=== PATIENT | male | born 1935 | race Caucasian/White ===

== ENCOUNTER 2016-11-03 09:44 | Inpatient (IN) | payer MEDICARE, BC ==
[2016-11-03] VITALS (29 sets, daily range): BP systolic 88–157; BP diastolic 48–98; PULSE 80–120; RESP 14–33; TEMP 97.4; O2SAT 92–99; Ht 177.8 cm; Wt 108.5 kg
[~2016-11-03] VITALS: Ht 177.8 cm; Wt 108.5 kg
[2016-11-03] MEDS: LR 1,000 ML IV SCH ×2 (07:00→14:52)
[~2016-11-03 09:44] MED LIST: CALC1TAB PO; CITA40TA6 PO; HYDR-4246 PO; LATA2.5D7 LEFT EYE; LIDOCAINE 1% (10mg/ml) 2ml SDV INJ ONE; LOSA1TAB96 PO; METF-200 PO; MULT-1074 PO; OXYB5TAB73 PO; SENN-156 PO; [UNRECOGNIZED DRUG - CODE] PO
--- OUTSIDE RECORDS SUMMARY | 2016-11-03 09:49 | XMS REPORT | Continuity of Care Document ---
Author Author [facility] Address [address] [place] [address] Phone Unavailable Care Team Providers Care Appellate Court Judge Name Role Phone Martinez Silverman PP Unavailable Payers Payer name Insurance type Covered libertarian ID Authorization(s) Unknown Problems Condition Effective Dates (start - stop) Clinical Status Parotiditis - *Acute Influenza Vaccine - Diabetes Mellitus Type 2, Uncomplicated - *Chronic Hypertension, Unspecified - *Chronic Hypercholesterolemia - *Chronic Depression - *Chronic ENCEPHALOPATHY, UNSPECIFIED - *Chronic Osteoarthrosis, unspecified whether generalized or localized, involving unspecified site - *Chronic Diabetes Mellitus Type 2, Uncomplicated - Chronic Hypertension, Unspecified - Chronic Hypercholesterolemia - Chronic Depression - Chronic ENCEPHALOPATHY, UNSPECIFIED - Chronic Osteoarthrosis, unspecified whether generalized or localized, involving unspecified site - Chronic Seizure disorder - *Resolved Ataxia - *Symptomatic Restless legs syndrome - *Fair Control Cerebral degeneration, unspecified - *Symptomatic Other speech disturbance - *Symptomatic Hand pain - *Acute Laceration of forehead - *Acute Abrasion, hand - *Acute Sprain of wrist - *Acute Laceration of index finger - *Acute DMII WO CMP NT ST UNCNTR - PURE HYPERCHOLESTEROLEM - 311 - DEPRESSIVE DISORDER NEC - HYPERTENSION NOS - OSTEOARTHROS NOS-UNSPEC - Sialoadenitis - Acute Exacerbation Parotiditis - *Acute Diabetes Mellitus Type 2, Uncomplicated - *Chronic Hypertension, Unspecified - *Chronic Osteoarthrosis, unspecified whether generalized or localized, involving unspecified site - *Chronic Hypercholesterolemia - *Chronic Depression - *Chronic Diabetes Mellitus Type 2, Uncomplicated - *Chronic Hypertension, Unspecified - *Chronic Hypercholesterolemia - *Chronic Osteoarthrosis, unspecified whether generalized or localized, involving unspecified site - *Chronic Diabetes Mellitus Type 2, Uncomplicated - Chronic Hypertension, Unspecified - Chronic Hypercholesterolemia - Chronic Depression - Chronic Osteoarthrosis, unspecified whether generalized or localized, involving unspecified site - Chronic Depression - *Chronic Cerebellar dysfunction - *Chronic Diabetes Mellitus Type 2, Uncomplicated - *Chronic Hypertension, Unspecified - *Chronic Diabetes Mellitus Type 2, Uncomplicated - Chronic Hypertension, Unspecified - Chronic Sialoadenitis - *Acute Sialoadenitis - Persistent Diabetes Mellitus Type 2, Uncomplicated - *Chronic Hypertension, Unspecified - *Chronic ENCEPHALOPATHY, UNSPECIFIED - *Chronic Hypercholesterolemia - *Chronic Osteoarthrosis, unspecified whether generalized or localized, involving unspecified site - *Chronic Depression - *Chronic Diabetes Mellitus Type 2, Uncomplicated - Chronic Hypertension, Unspecified - Chronic ENCEPHALOPATHY, UNSPECIFIED - Chronic Hypercholesterolemia - Chronic Osteoarthrosis, unspecified whether generalized or localized, involving unspecified site - Chronic Depression - Chronic Diabetes Mellitus Type 2, Uncomplicated - *Chronic Hypertension, Unspecified - *Chronic Hypercholesterolemia - *Chronic Depression - *Chronic ENCEPHALOPATHY, UNSPECIFIED - *Chronic Osteoarthrosis, unspecified whether generalized or localized, involving unspecified site - *Chronic Diabetes Mellitus Type 2, Uncomplicated - Chronic Hypertension, Unspecified - Chronic Hypercholesterolemia - Chronic Depression - Chronic ENCEPHALOPATHY, UNSPECIFIED - Chronic Osteoarthrosis, unspecified whether generalized or localized, involving unspecified site - Chronic Sialoadenitis - *Acute Diabetes Mellitus Type 2, Uncomplicated - *Stable Swelling, mass, or lump in head and neck - *Acute Laceration of finger - *Acute Sialoadenitis - *Chronic Muscle strain of right upper back - *Acute Family History Family Member Diagnosis Age At Onset Status Family h/o (Unknown) Cancer - breast Yes Mother (Unknown) Heart disease Yes Family h/o (Unknown) Cancer - prostate Yes Family h/o (Unknown) CVA (Stroke) Yes Father (Unknown) Cancer - lung Yes Mother (Unknown) Cancer Yes Social History Social History Element Description Quantity Unknown Allergies, Adverse Reactions, Alerts Substance Reaction Severity Status MORPHINE Hallucinations moderate Medications Medication Instructions Dosage Effective Dates (start - stop) Status Augmentin 875 mg-125 mg tablet take 1 tablet by oral route every 12 hours 0 - No Longer Active Multiple Vitamins Daily tablet take 1 Tablet by Oral route every day 0 - Active citalopram 20 mg tablet Take 1 by mouth every day. - Active metformin 500 mg tablet Take 2 tablets by mouth twice a day. - Active simvastatin 20 mg tablet Take 1 tablet by mouth every day. - Active oxybutynin chloride 5 mg tablet Take 1 tablet by mouth twice a day. - Active metoprolol tartrate 50 mg tablet Take 1 tablet by mouth every day. 2012 - Active One Touch Ultra Test strips TEST DAILY FASTING OR 2 HOURS AFTER MEALS - Active Hyzaar 100 mg-25 mg tablet take 0.5 Tablet by oral route every day 0 - Active latanoprost 0.005 % eye drops instill 1 drop by ophthalmic route every day into affected eye(s) in the evening 0 - Active CALCIUM PLUS (unknown strength) - Active pramipexole 0.25 mg tablet take 1.5 Tablet (0.375MG) by oral route 2-3 hours before bedtime 0.375 MG - Active [place] 5 mg-325 mg tablet take 1 - 2 Tablet by oral route every 6 hours as needed for pain 0 - Active clindamycin 300 mg capsule take 1 capsule (300MG) by oral route every 8 hours 300 MG - Active Bactrim DS 800 mg-160 mg tablet take 1 tablet by oral route every 12 hours 0 - Active glipizide ER 10 mg tablet, extended release 24 hr Take 1 tablet by mouth every day. - Active Immunizations Vaccine Date Status Comments pneumo (2 yrs or older) (PPV23) completed - Completed reason: other registry Flu (split) (3 yrs or older) completed Flu (split) (3 yrs or older) completed Tdap (Adacel ) completed - Completed reason: other provider Td (adult) completed - Completed reason: previously given Results Test Name Date and Time Measure Units Reference Range Abnormal Flag Comments Unknown Vital Signs Date / Time: Height Weight Pulse Rate Blood Pressure Temperature /11:33:00 70.00 in 84 /min 138/98 mm[Hg] 97.8 F Procedures Procedure Date Unknown Encounters Encounter Location Date Patient Visit [facility] Patient Visit Patient Visit [facility] Patient Visit [facility] Patient Visit [facility] Patient Visit [facility] Patient Visit [facility] Patient Visit [facility] Patient Visit [facility] Patient Visit [facility] Patient Visit [facility] Patient [facility] Patient Visit [facility] Patient Visit [facility] Patient Visit [facility] Advance Directives Directive Effective Date Unknown
--- OUTSIDE RECORDS SUMMARY | 2016-11-03 09:50 | XMS REPORT | Continuity of Care Document ---
Author Author [facility] Organization [facility] Address Unknown Phone Unavailable Allergies Active Description Code Type Severity Reaction Onset Reported/Identified Relationship to Patient Clinical Status Yes morphine NKMA Moderate Hallucinations 10/09/2013 Medications Problems Procedures Results Encounters ACCT No. Visit Date/Time Discharge Status Pt. Type Provider Facility Loc./Unit Complaint [id number] 08/26/2013 12:39:00 08/26/2013 23 :59:59 CLS Outpatient [id number] 08/20/2013 14:50:00 08/20/2013 23 :59:59 CLS Outpatient [id number] 08/20/2013 10:07:00 08/20/2013 23 :59:59 CLS Outpatient [id number] 08/12/2013 11:32:00 08/12/2013 23 :59:59 CLS Outpatient [id number] 08/01/2013 13:53:00 08/01/2013 23 :59:59 CLS Outpatient [id number] 06/18/2013 12:56:00 06/18/2013 23 :59:59 CLS Outpatient
--- OUTSIDE RECORDS SUMMARY | 2016-11-03 09:50 | XMS REPORT | Referral Summary ---
Author Author [facility] Organization 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 Name Role Phone Vanessa Silverman Primary Care Physician [phone] Encounter VC Date(s): 04/09/15 - 04/09/15 [facility] [address] [place] [address]- Discharge Disposition: 01-Home or Self Care Attending Physician: Martinez Silverman MD Admitting Physician: Martinez Silverman MD Vital Signs No data available for this section Problem List Condition Effective Dates Status Health Status Informant Ataxia(Confirmed) Active Cerebellar Resolved dysfunction(Confirme d) Depressive Resolved disorder(Confirmed) Disorder of brain Active (disorder)(Confirmed ) DM II (diabetes Resolved mellitus, type II), controlled(Confirmed ) Essential Active hypertension (disorder)(Confirmed ) Hypercholesterolemia Resolved (Confirmed) Hypertension(Confirm Resolved ed) Osteoarthritis(Confi Resolved rmed) Pure Active hypercholesterolemia (disorder)(Confirmed ) Restless legs Active syndrome (RLS)(Confirmed) Seizure Resolved disorder(Confirmed) Diabetes mellitus, Active type 2(Confirmed) Allergies, Adverse Reactions, Alerts Substance Reaction Severity Status morphine Hallucinations Moderate Active Medications Calcium 600+D tabs, Oral, TID, 0 Refill(s) Start Date: 11/22/13 Status: Ordered citalopram 20 mg oral tablet See Instructions, TAKE TWO TABLET BY MOUTH EVERY DAY, # 90 tabs, 1 Refill(s), eRx: [facility], TAKE ONE TABLET BY MOUTH EVERY DAY Start Date: 10/22/14 Status: Ordered cyclobenzaprine 10 mg oral tablet 10 mg 1 tabs, Oral, TID, as needed for spasm, # 90 tabs, 0 Refill(s), Pharmacy: [facility], 1 tabs Oral TID,PRN:as needed for spasm Start Date: 01/26/15 Status: Ordered Eye Health Formula oral capsule 1 caps, Oral, Daily, # 90 caps, 0 Refill(s) Start Date: 08/18/14 Status: Ordered glipiZIDE 10 mg oral tablet, extended release See Instructions, TAKE ONE TABLET BY MOUTH ONCE DAILY, # 90 tabs, 1 Refill(s), eRx: [facility], TAKE ONE TABLET BY MOUTH ONCE DAILY Start Date: 01/05/15 Status: Ordered Glucometer strips (DME) DME Item One Touch Ultra Test Strips, Test daily DX 250.00, See Instructions, # 100 Each, 5 Refill(s), Pharmacy: [facility] #[id number], One Touch Ultra Test Strips, Test daily DX 250.00, Supply Start Date: 03/09/15 Status: Ordered HYDROcodone-acetaminophen 5 mg-325 mg oral tablet 1-2 tablets, Oral, q4hr, as needed for pain, # 24 tabs, 0 Refill(s) Start Date: 04/16/14 Status: Ordered latanoprost 0.005% ophthalmic solution 1 drops, Eye-Left, Bedtime (once a day), # 2.5 mL, 0 Refill(s) Start Date: 11/22/13 Status: Ordered losartan-hydrochlorothiazide 100 mg-25 mg oral tablet See Instructions, TAKE ONE TABLET BY MOUTH EVERY DAY, # 90 tabs, 1 Refill(s), eRx: [facility], TAKE ONE TABLET BY MOUTH EVERY DAY Start Date: 02/09/15 Status: Ordered metFORMIN 500 mg oral tablet See Instructions, TAKE TWO TABLETS BY MOUTH TWICE DAILY, # 270 tabs, eRx: [facility], TAKE TWO TABLETS BY MOUTH TWICE DAILY Start Date: 03/17/15 Status: Ordered Metoprolol Tartrate 50 mg oral tablet See Instructions, TAKE ONE TABLET BY MOUTH ONCE DAILY, # 90 tabs, 1 Refill(s), eRx: [facility], TAKE ONE TABLET BY MOUTH ONCE DAILY Start Date: 02/18/15 Status: Ordered Mobic 7.5 mg oral tablet 7.5 mg 1 tabs, Oral, Daily, # 14 Each, 0 Refill(s), Pharmacy: [place] [id number], 1 tabs Oral Daily Start Date: 01/26/15 Status: Ordered multivitamin Daily, 0 Refill(s) Start Date: 11/22/13 Status: Ordered [place] 5 mg-325 mg oral tablet 1 tabs, Oral, q4hr, as needed for pain, max tylenol in 24 hrs is 3000mg, # 50 tabs, 0 Refill(s) Start Date: 01/26/15 Status: Ordered ONETOUCH ULTRA TEST STRIPS See Instructions, TEST ONE TO TWO TIMES A DAY, # 50 strip, 2 Refill(s), eRx: [facility] #[id number], TEST ONE TO TWO TIMES A DAY Start Date: 03/09/15 Status: Ordered oxybutynin 5 mg oral tablet See Instructions, TAKE ONE TABLET BY MOUTH TWICE DAILY, # 180 tabs, 1 Refill(s) , eRx: [facility], TAKE ONE TABLET BY MOUTH TWICE DAILY Start Date: 02/09/15 Status: Ordered senna Oral, Daily, as needed for constipation, 0 Refill(s) Start Date: 08/18/14 Status: Ordered simvastatin 20 mg oral tablet See Instructions, TAKE ONE TABLET BY MOUTH EVERY DAY, # 90 tabs, 1 Refill(s), eRx: [facility], TAKE ONE TABLET BY MOUTH EVERY DAY Start Date: 09/17/14 Status: Ordered Results No data available for this section Immunizations Vaccine Date Refusal Reason influenza virus vaccine, inactivated 04/09/15 influenza virus vaccine, inactivated 04/08/14 influenza virus vaccine, live 04/17/13 influenza virus vaccine, live 04/12/12 pneumococcal 13-valent conjugate vaccine1 11/19/14 pneumococcal 23-polyvalent vaccine 04/25/02 tetanus-diphth toxoids (Td) adult/adol 07/21/12 1Early/Late Reason: Nursing Judgment Procedures Procedure Date Related Diagnosis Body Site Parotidectomy1 04/16/14 None Shoulder2 1left side 2Left shoulder replacement Social History Social History Type Response Smoking Status Former smoker Assessment and Plan No data available for this section
--- OUTSIDE RECORDS SUMMARY | 2016-11-03 09:50 | XMS REPORT | Continuity of Care Document ---
Author Author Martinez Silverman MD [facility] Amb[facility] Address [address] [place] [address] Phone Care Team Providers Care Oyster Fisherman Name Role Phone Martinez Silverman PP Unavailable Payers Payer name Insurance type Covered libertarian ID Authorization(s) Unknown Problems Condition Effective Dates (start - stop) Clinical Status Diabetes Mellitus Type 2, Uncomplicated - *Chronic [...] or localized, involving unspecified site - Chronic Influenza Vaccine - Diabetes Mellitus Type 2, [...] *Acute Laceration of index finger - *Acute Parotiditis - *Acute DMII WO CMP NT ST [...] unspecified site - Chronic Depression - Chronic Sialoadenitis - *Acute Diabetes Mellitus [...] Dosage Effective Dates (start - stop) Status Multiple Vitamins Daily tablet take 1 Tablet by Oral route every day 0 - Active glipizide ER 10 mg tablet, extended release 24 hr Take 1 tablet by mouth every day. - Active citalopram 20 mg tablet Take [...] hours before bedtime 0.375 MG - Active [place] 5 mg-325 mg tablet take 1 - 2 Tablet by oral route every 6 hours as needed for pain 0 - Active clindamycin 300 mg capsule take 1 capsule (300MG) by oral route every 8 hours 300 MG - Active Bactrim DS 800 mg-160 mg tablet take 1 tablet by oral route every 12 hours 0 - Active Immunizations Vaccine Date Status Comments [...] Height Weight Pulse Rate Blood Pressure Temperature /14:02:00 70.00 in 257.00 lbs 68 /min 130/74 mm[Hg] 98.3 F Procedures Procedure Date Unknown Encounters Encounter Location Date Patient Visit [facility] Patient Visit Patient Visit [facility] Patient Visit [facility] Patient Visit [facility] Patient Visit [facility] Patient [facility] Patient [facility] Patient [facility] Patient Visit [facility] Patient Visit [facility] Patient Visit [facility] Patient [facility] Patient [facility] Patient [facility] Patient [facility] Advance Directives Directive Effective Date Unknown
--- OUTSIDE RECORDS SUMMARY | 2016-11-03 09:50 | XMS REPORT | Referral Summary ---
Author Author [facility] Organization [facility] Address Unknown Phone Unavailable Care Team Providers Care Full Stack Php Developer Name Role Phone Vanessa Silverman Primary Care Physician [phone] Encounter VC Date(s): 07/28/16 - 07/28/16 [facility] [address] [place] [address]- Discharge Diagnosis: Atypical mole Discharge Disposition: 01-Home or Self Care Attending Physician: Martinez Silverman MD Admitting Physician: Martinez Silverman MD Vital Signs Most recent to 1 oldest [Reference Range]: Peripheral Pulse 68 bpm Rate [60-100 bpm] (07/28/16 10:47 AM) Respiratory Rate 16 br/min [14-20 br/min] (07/28/16 10:47 AM) Blood Pressure 134/70 mmHg [90-140/60-90 mmHg] (07/28/16 10:47 AM) Problem List Condition Effective Dates Status Health Status Informant Ataxia(Confirmed) Active Cerebellar Active dysfunction(Confirme d) Depressive Resolved disorder(Confirmed) DM II (diabetes Resolved mellitus, type II), controlled(Confirmed ) Essential Active hypertension (disorder)(Confirmed ) Hypercholesterolemia Resolved (Confirmed) Hypertension(Confirm Resolved ed) Disorder of brain Active (disorder)(Confirmed ) Osteoarthritis(Confi Active rmed) Pure Active hypercholesterolemia (disorder)(Confirmed ) Restless legs Active syndrome (RLS)(Confirmed) Seizure Resolved disorder(Confirmed) Diabetes mellitus, Active type 2(Confirmed) Allergies, Adverse Reactions, Alerts Substance Reaction Severity Status morphine Hallucinations Moderate Active Medications citalopram 40 mg oral tablet 40 mg 1 tabs, Oral, Daily, # 90 tabs, 4 Refill(s), Pharmacy: [facility], 1 tabs Oral Daily Start Date: 09/01/15 Status: Ordered cyclobenzaprine 10 mg oral tablet 10 mg 1 tabs, Oral, TID, as needed for spasm, # 90 tabs, 0 Refill(s), Pharmacy: [facility], 1 tabs Oral TID,PRN:as needed for spasm Start Date: 01/26/15 Status: Ordered glipiZIDE 10 mg oral tablet, extended release 10 mg 1 tabs, Oral, Daily, [id number], # 90 tabs, 4 Refill(s), Pharmacy: [facility], 1 tabs Oral Daily,Instr:[id number] Start Date: 09/01/15 Status: Ordered Glucometer Lancets (DME) DME Item LANCETS. PT. USES ONE TOUCH ULTRA MACHINE DX. E11.9 CHECK B/S BID , See Instructions, # 1 boxes, 3 Refill(s), Pharmacy: [facility] #[id number], LANCETS. PT. USES ONE TOUCH ULTRA MACHINE DX. E11.9 CHECK B/S BID, Supply Start Date: 02/24/16 Status: Ordered Glucometer strips (DME) DME Item One Touch Ultra Test Strips, Test 2 times daily DX E11.9, See Instructions, # 100 Each, 5 Refill(s), Pharmacy: [facility] #[id number], One Touch Ultra Test Strips, Test 2 times daily DX E11.9, Supply Start Date: 04/07/16 Status: Ordered HYDROcodone-acetaminophen 5 mg-325 mg oral tablet 1-2 tablets, Oral, q4hr, as needed for pain, # 24 tabs, 0 Refill(s) Start Date: 04/16/14 Status: Ordered latanoprost 0.005% ophthalmic solution 1 drops, Eye-Left, Bedtime (once a day), # 2.5 mL, 0 Refill(s) Start Date: 11/22/13 Status: Ordered losartan-hydrochlorothiazide 100 mg-25 mg oral tablet 1 tabs, Oral, Daily, [id number], # 90 tabs, 4 Refill(s), Pharmacy: [facility] Start Date: 09/01/15 Status: Ordered metFORMIN 500 mg oral tablet 1,000 mg 2 tabs, Oral, BID, [id number], # 360 tabs, 4 Refill(s), Pharmacy: [facility], 2 tabs Oral BID,Instr:[id number] Start Date: 09/01/15 Status: Ordered Metoprolol Tartrate 50 mg oral tablet 50 mg 1 tabs, Oral, Daily, [id number], # 90 tabs, 4 Refill(s), Pharmacy: [facility], 1 tabs Oral Daily,Instr:[id number] Start Date: 09/01/15 Status: Ordered Mobic 7.5 mg oral tablet 7.5 mg 1 tabs, Oral, Daily, # 14 Each, 0 Refill(s), Pharmacy: [facility], 1 tabs Oral Daily Start Date: 01/26/15 Status: Ordered [place] 5 mg-325 mg oral tablet 1 tabs, Oral, q4hr, as needed for pain, max tylenol in 24 hrs is 3000mg, # 50 tabs, 0 Refill(s) Start Date: 01/26/15 Status: Ordered ONETOUCH ULTRA TEST STRIPS See Instructions, TEST ONE TO TWO TIMES A DAY, # 50 strip, 2 Refill(s), eRx: [facility] #[id number], TEST ONE TO TWO TIMES A DAY Start Date: 03/09/15 Status: Ordered oxybutynin 5 mg oral tablet 5 mg 1 tabs, Oral, BID, [id number], # 180 tabs, 4 Refill(s), Pharmacy: [facility], 1 tabs Oral BID,Instr:[id number] Start Date: 09/01/15 Status: Ordered senna Oral, Daily, as needed for constipation, 0 Refill(s) Start Date: 08/18/14 Status: Ordered [place] 5 mg oral tablet 5 mg 1 tabs, Oral, Daily, samples x 5 weeks given, # 30 tabs, 0 Refill(s), samples given to patient (Rx) Start Date: 08/20/15 Status: Ordered Results No data available for this section Immunizations Given and Recorded Vaccine Date Status Refusal Reason influenza virus vaccine, inactivated 02/24/16 Given influenza virus vaccine, inactivated 04/09/15 Given influenza virus vaccine, inactivated 04/08/14 Recorded influenza virus vaccine, live 04/17/13 Given influenza virus vaccine, live 04/12/12 Given pneumococcal 13-valent conjugate vaccine1 11/19/14 Given pneumococcal 23-polyvalent vaccine 04/25/02 Recorded tetanus-diphth toxoids (Td) adult/adol 07/21/12 Given 1Early/Late Reason: Nursing Judgment Procedures Procedure Date Related Diagnosis Body Site Parotidectomy1 04/16/14 None Shoulder2 1left side 2Left shoulder replacement Social History Social History Type Response Smoking Status Former smoker Assessment and Plan No data available for this section
--- OUTSIDE RECORDS SUMMARY | 2016-11-03 09:50 | XMS REPORT | Continuity of Care Document ---
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 Name Role Phone Martinez Silverman PP Unavailable Payers Payer name Insurance type Covered alliance party ID Authorization(s) Unknown Problems Condition Effective Dates (start - stop) Clinical Status Seizure disorder - *Resolved Ataxia - *Symptomatic Restless legs syndrome - *Fair Control Influenza Vaccine - Diabetes Mellitus Type 2, [...] or localized, involving unspecified site - Chronic Cerebral degeneration, unspecified - *Symptomatic Other speech disturbance - *Symptomatic Hand pain - *Acute Laceration of forehead - *Acute Abrasion, hand - *Acute Sprain of wrist - *Acute Laceration of index finger - *Acute DMII WO CMP NT ST UNCNTR - PURE HYPERCHOLESTEROLEM - 311 - DEPRESSIVE DISORDER NEC - HYPERTENSION NOS - OSTEOARTHROS NOS-UNSPEC - Parotiditis - *Acute Diabetes Mellitus Type 2, [...] Depression - *Chronic Cerebellar dysfunction - *Chronic Sialoadenitis - Persistent Diabetes Mellitus Type 2, [...] - *Acute Laceration of finger - *Acute Muscle strain of right upper back - [...] Adverse Reactions, Alerts Substance Reaction Severity Status Unknown Medications Medication Instructions Dosage Effective Dates (start - stop) Status latanoprost 0.005 % eye drops instill 1 drop by ophthalmic route every day into affected eye(s) in the evening 0 - Active CALCIUM PLUS (unknown strength) - Active Mirapex 0.25 mg tablet take 1.5 Tablet (0.375MG) by oral route 2-3 hours before bedtime 0.375 MG - No Longer Active Multiple Vitamins Daily [...] oral route every day 0 - Active pramipexole 0.25 mg tablet take 1.5 Tablet (0.375MG) by oral route 2-3 hours before bedtime 0.375 MG - Active Immunizations Vaccine Date Status Comments [...] Height Weight Pulse Rate Blood Pressure Temperature /12:58:00 260.60 lbs 66 /min 110/70 mm[Hg] Procedures Procedure Date Unknown Encounters Encounter Location Date Patient Visit [facility] Neuro Patient Visit Patient Visit [facility] Patient Visit [facility] Patient Visit [facility] Patient Visit [facility] Patient Visit [facility] Patient Visit [facility] Patient Visit [facility] Patient Visit [facility] Patient Visit [facility] Patient Visit [facility] Patient Visit [facility] Patient Visit [facility] Patient Visit [facility] Patient Visit [facility] Patient Visit [facility] Patient Visit [facility] Patient Visit [facility] ENT Patient Visit [facility] Patient Visit [facility] Patient Visit [facility] Patient Visit [facility] Advance Directives Directive Effective Date Unknown
--- OUTSIDE RECORDS SUMMARY | 2016-11-03 09:50 | XMS REPORT | Referral Summary ---
Author Author [facility] Organization [facility] Address Unknown Phone Unavailable Care Team Providers Care Side Boss Name Role Phone Vanessa Silverman Primary Care Physician [phone] Encounter Date(s): 01/26/15 - 01/26/15 [facility] [address] [place] [address]- Discharge Diagnosis: General weakness Discharge Diagnosis: Cerebellar dysfunction Discharge Diagnosis: Back spasm Discharge Diagnosis: Rash Discharge Disposition: 01-Home or Self Care Attending Physician: Leatha Casarez APRN Admitting Physician: Leatha Casarez APRN Vital Signs Most recent to 1 oldest [Reference Range]: Temperature Tympanic 36.1 degC [36.6-38.1 degC] *LOW* (01/26/15 10:01 AM) Peripheral Pulse 88 bpm Rate [60-100 bpm] (01/26/15 10:01 AM) Blood Pressure 120/86 mmHg [90-140/60-90 mmHg] (01/26/15 10:01 AM) Problem List Condition Effective Dates Status [...] Status morphine Hallucinations Moderate Active Medications citalopram 20 mg oral tablet See Instructions, TAKE two TABLET BY MOUTH ONCE DAILY, # 90 tabs, 1 Refill(s), eRx: [id number], TAKE ONE TABLET BY MOUTH ONCE DAILY Start Date: 04/20/15 Status: Ordered cyclobenzaprine 10 mg oral tablet 10 mg 1 tabs, Oral, TID, as needed for spasm, # 90 tabs, 0 Refill(s), Pharmacy: [place] [id number], 1 tabs Oral TID,PRN:as needed for spasm Start Date: 01/26/15 Status: Ordered glipiZIDE 10 mg oral tablet, extended release See Instructions, TAKE ONE TABLET BY MOUTH ONCE DAILY, # 90 tabs, 1 Refill(s), eRx: [facility] 242, TAKE ONE TABLET BY MOUTH ONCE DAILY Start Date: 07/20/15 Status: Ordered Glucometer strips (DME) DME Item One Touch Ultra Test Strips, Test daily DX 250.00, See Instructions, # 100 Each, 5 Refill(s), Pharmacy: [facility] #[id number], One Touch Ultra Test Strips, Test daily [...] DAY, # 90 tabs, 1 Refill(s), eRx: [place] [id number], TAKE ONE TABLET BY MOUTH EVERY DAY Start Date: 02/09/15 Status: Ordered metFORMIN 500 mg oral tablet See Instructions, TAKE TWO TABLETS BY MOUTH TWICE DAILY, # 270 tabs, 1 Refill(s) , eRx: [facility] 2428, TAKE TWO TABLETS BY MOUTH TWICE DAILY Start Date: 05/18/15 Status: Ordered Metoprolol Tartrate 50 mg oral tablet See Instructions, TAKE ONE TABLET BY MOUTH ONCE DAILY, # 90 tabs, 1 Refill(s), eRx: [facility] 2428, TAKE ONE TABLET BY MOUTH ONCE DAILY Start Date: 02/18/15 Status: Ordered Mobic 7.5 mg oral tablet 7.5 mg 1 tabs, Oral, Daily, # 14 Each, 0 Refill(s), Pharmacy: [facility], 1 tabs Oral Daily Start Date: 01/26/15 Status: Ordered [place] 5 mg-325 mg oral tablet 1 tabs, Oral, q4hr, as needed for pain, max tylenol in 24 hrs is 3000mg, # 50 tabs, 0 Refill(s) Start Date: 01/26/15 Status: Ordered ONETOUCH ULTRA TEST STRIPS See Instructions, TEST ONE TO TWO TIMES A DAY, # 50 strip, 2 Refill(s), eRx: [facility] #[id number], TEST ONE TO TWO TIMES A DAY Start Date: 03/09/15 Status: Ordered oxybutynin 5 mg oral tablet See Instructions, TAKE ONE TABLET BY MOUTH TWICE DAILY, # 180 tabs, 1 Refill(s) , eRx: [id number], TAKE ONE TABLET BY MOUTH TWICE DAILY Start Date: 02/09/15 Status: Ordered senna Oral, Daily, as needed for constipation, 0 Refill(s) Start Date: 08/18/14 Status: Ordered Results No data available for [...] Smoking Status Former smoker Assessment and Plan Extracted from: Title: Office Visit Note-back Author: Leatha Casarez APRN Date: Assessment/Plan 1.Back spasm Cyclobenzapine 3 x a day as needed. Counseled regarding usual conservative care for musculoskeletal back pain. The history suggests a mechanical etiology. The examination and history do not suggest acute cauda equina syndrome. RecommendMobic 7.5 mg dly x 2 weeks. Avoid other NSAIDS. Take with food. May cause stomach irritation. Tylenol per box instructions as needed. Max in 3000mg/24 hrs. Each norco has 325 mg in it. Try heating pad, ice massage, hot soak in tub/shower, and/or topical preparations like Icy Hot/Lj Schafer as desired. Muscle relaxant as prescribed. Cautioned against drowsiness. Follow-up in the office if symptoms fail to improve. Consider PT if not improving over time. If not improved in 4-6 weeks will consider imaging. Avoid offending activities.There is no history of any significant trauma and no midline tenderness to indicate any need for any imaging studies on this occasion. [place] for severe pain. Ordered: Office Visit Level 4 Est 93818 2.Rash cont benadryl. Ordered: Office Visit Level 4 Est 11692 Cerebellar dysfunction at baseline. Enc pt to avoid sitting on ground. Ordered: Office Visit Level 4 Est 04509 General weakness Ordered: Office Visit Level 4 Est 48029 Orders: cyclobenzaprine, 10 mg 1 tabs, Oral, TID, as needed for spasm, # 90 tabs, 0 Refill(s), Pharmacy: [facility], 1 tabs Oral TID,PRN:as needed for spasm HYDROcodone-acetaminophen, 1 tabs, Oral, q4hr, as needed for pain, max tylenol in 24 hrs is 3000mg, # 50 tabs, 0 Refill(s) meloxicam, 7.5 mg 1 tabs, Oral, Daily, # 14 Each, 0 Refill(s), Pharmacy: [facility], 1 tabs Oral Daily
--- OUTSIDE RECORDS SUMMARY | 2016-11-03 09:50 | XMS REPORT | Referral Summary ---
Author Author [facility] Organization [facility] Address Unknown Phone Unavailable Care Team Providers Care Roastmaster Name Role Phone Vanessa Silverman Primary Care Physician [phone] Encounter VC Date(s): 02/19/15 - 02/19/15 [facility] [address] [place] [address] Discharge Diagnosis: Diabetes mellitus, type 2 Discharge Diagnosis: Disorder of brain Discharge Diagnosis: Essential hypertension Discharge Diagnosis: Pure hypercholesterolemia Discharge Diagnosis: Cerebellar dysfunction Discharge Disposition: 01-Home or Self Care Attending Physician: Martinez Silverman MD Admitting Physician: Martinez Silverman MD Vital Signs Most recent to 1 oldest [Reference Range]: Temperature Tympanic 36.5 degC [36.6-38.1 degC] *LOW* (02/19/15 11:04 AM) Peripheral Pulse 86 bpm Rate [60-100 bpm] (02/19/15 11:04 AM) Blood Pressure 126/84 mmHg [90-140/60-90 mmHg] (02/19/15 11:04 AM) Problem List Condition Effective Dates Status Health Status Informant Ataxia(Confirmed) Active Cerebellar Resolved dysfunction(Confirme d) Depressive Resolved disorder(Confirmed) DM II (diabetes Resolved mellitus, type II), controlled(Confirmed ) Essential Active hypertension (disorder)(Confirmed ) Hypercholesterolemia Resolved (Confirmed) Hypertension(Confirm Resolved ed) Disorder of brain Active (disorder)(Confirmed ) Osteoarthritis(Confi Resolved rmed) Pure Active hypercholesterolemia (disorder)(Confirmed ) Restless legs Active syndrome (RLS)(Confirmed) Seizure Resolved disorder(Confirmed) Diabetes mellitus, Active type 2(Confirmed) Allergies, Adverse Reactions, Alerts Substance Reaction Severity Status morphine Hallucinations Moderate Active Medications citalopram 40 mg oral tablet 40 mg 1 tabs, Oral, Daily, # 90 tabs, 4 Refill(s), Pharmacy: [facility], 1 tabs Oral Daily Start Date: 08/21/15 Status: Ordered cyclobenzaprine 10 mg oral tablet 10 mg 1 tabs, Oral, TID, as needed for spasm, # 90 tabs, 0 Refill(s), Pharmacy: [facility], 1 tabs Oral TID,PRN:as needed for spasm Start Date: 01/26/15 Status: Ordered glipiZIDE 10 mg oral tablet, extended release 10 mg 1 tabs, Oral, Daily, [id number], # 90 tabs, 4 Refill(s), Pharmacy: [facility], 1 tabs Oral Daily,Instr:[id number] Start Date: 08/21/15 Status: Ordered Glucometer strips (DME) DME Item One Touch Ultra Test Strips, Test daily DX 250.00, See Instructions, # 100 Each, 5 Refill(s), Pharmacy: [facility] #[id number], One Touch Ultra Test Strips, Test daily [...] mg oral tablet 1 tabs, Oral, Daily, [id number], # 90 tabs, 4 Refill(s), Pharmacy: [facility] Start Date: 08/21/15 Status: Ordered metFORMIN 500 mg oral tablet 1,000 mg 2 tabs, Oral, BID, [id number], # 360 tabs, 4 Refill(s), Pharmacy: [facility], 2 tabs Oral BID,Instr:[id number] Start Date: 08/21/15 Status: Ordered Metoprolol Tartrate 50 mg oral tablet 50 mg 1 tabs, Oral, Daily, [id number], # 90 tabs, 4 Refill(s), Pharmacy: [facility], 1 tabs Oral Daily,Instr:[id number] Start Date: 08/21/15 Status: Ordered Mobic 7.5 mg oral tablet 7.5 mg 1 tabs, Oral, Daily, # 14 Each, 0 Refill(s), Pharmacy: [facility], 1 tabs Oral Daily Start Date: 01/26/15 Status: Ordered [place] 5 mg-325 mg oral tablet 1 tabs, Oral, q4hr, as needed for pain, max tylenol in 24 hrs is 3000mg, # 50 tabs, 0 Refill(s) Start Date: 01/26/15 Status: Ordered ONETOUCH ULTRA TEST STRIPS See Instructions, TEST ONE TO TWO TIMES A DAY, # 50 strip, 2 Refill(s), eRx: [facility] #[id number], TEST ONE TO TWO TIMES A DAY Start Date: 03/09/15 Status: Ordered oxybutynin 5 mg oral tablet 5 mg 1 tabs, Oral, BID, [id number], # 180 tabs, 4 Refill(s), Pharmacy: [facility], 1 tabs Oral BID,Instr:[id number] Start Date: 08/21/15 Status: Ordered senna Oral, Daily, as needed for constipation, 0 Refill(s) Start Date: 08/18/14 Status: Ordered Tradjenta 5 mg oral tablet 5 mg 1 tabs, Oral, Daily, # 30 tabs, 0 Refill(s), samples given [...] smoker Assessment and Plan Extracted from: Title: Ambulatory Patient Education Author: Martinez Silverman MD Date: Ophthalmology Diabetes and Small Vessel Disease Small vessel disease (microvascular disease) includes nephropathy, retinopathy, and neuropathy. People with diabetes are at risk for these problems, but keeping blood glucose (sugar) controlled is helpful in preventing problems. DIABETIC KIDNEY PROBLEMS (DIABETIC NEPHROPATHY) Diabetic nephropathy occurs in many patients with diabetes. Damage to the small vessels in the kidneys is the leading cause of end- stage renal disease (ESRD). Protein in the urine (albuminuria) in the range of 30 to 300 mg/24 h ( microalbuminuria) is a sign of the earliest stage of diabetic nephropathy. Good blood glucose (sugar) and blood pressure control significantly reduce the progression of nephropathy. DIABETIC EYE PROBLEMS (DIABETIC RETINOPATHY) Diabetic retinopathy is the most common cause of new cases of blindness in adults. It is related to the number of years you have had diabetes. Common risk factors include high blood sugar (hyperglycemia), high blood pressure (hypertension), and poorly controlled blood lipids such as high blood cholesterol (hypercholesterolemia). DIABETIC NERVE PROBLEMS (DIABETIC NEUROPATHY) Diabetic neuropathy is the most common, long-term complication of diabetes. It is responsible for more than half of leg amputations not due to accidents. The main risk for developing diabetic neuropathy seems to be uncontrolled blood sugars. Hyperglycemia damages the nerve fibers causing sensation (feeling) problems. The closer you can keep the following guidelines, the better chance you will have avoiding problems from small vessel disease. Working toward near normal blood glucose or as normal as possible. You will need to keep your blood glucose and A1c at the target range prescribed by your caregiver. Keep your blood pressure less than 120/80. Keep your low-density lipoprotein (LDL) cholesterol (one of the fats in your blood) at less than 100 mg/dL. An LDL less than 70 mg/dL may be recommended for high risk patients. You cannot change your family history, but it is important to change the risk factors that you can. Risk factors you can control include: Controlling high blood pressure. Stopping smoking. Using alcohol only in moderation. Generally, this means about one drink per day for women and two drinks per day for men. Controlling your blood lipids (cholesterol and triglycerides). Treating heart problems, if these are contributing to risk. SEEK MEDICAL CARE IF: You are having problems keeping your blood glucose in goal range. You notice a change in your vision or new problems with your vision. You have wound or sore that does not heal. Your blood pressure is above the target range. Document Released: 05/31/2004 Document Revised: 05/15/2013 Document Reviewed: ExitCare Patient Information 2015 [employer], [facility]. This information is not intended to replace advice given to you by your health care provider. Make sure you discuss any questions you have with your health care provider. No follow up information was provided. Extracted from: Title: Office Visit Note Author: Martinez Silverman MD Date: 02/19/15 Assessment/Plan Cerebellar dysfunction Chronic stable no change in current treatment recommended. Ordered: Office Visit Level 4 Est 99241 Diabetes mellitus, type 2 A1c is up to 7.7. He reassures me he'll work harder on diet. No change in current treatment otherwise. Recheck in 3 months. Report card reviewed and provided. Ordered: Office Visit Level 4 Est 82448 Essential hypertension Blood pressures adequately controlled no change in current treatment plan. Report card reviewed and provided. Recheck in 3 months. Ordered: Office Visit Level 4 Est 67209 Pure hypercholesterolemia Chronic stable no change in current treatment. Ordered: Office Visit Level 4 Est 30139
--- OUTSIDE RECORDS SUMMARY | 2016-11-03 09:50 | XMS REPORT | Continuity of Care Document ---
Author Author [facility] Ambulatory Address [address] [place] [address] Phone Unavailable Care Team Providers Care Lock Operator Name Role Phone Martinez Silverman PP Unavailable Payers Payer name Insurance type Covered constitution party ID Authorization(s) Unknown Problems Condition Effective Dates (start - stop) Clinical Status Diabetes Mellitus Type 2, Uncomplicated - *Chronic Hypertension, Unspecified - *Chronic Diabetes Mellitus Type 2, Uncomplicated - Chronic Hypertension, Unspecified - Chronic Sialoadenitis - *Acute Influenza Vaccine - Diabetes Mellitus [...] Dosage Effective Dates (start - stop) Status [place] 7.5 mg-325 mg tablet take 1 tablet by oral route every 6 hours as needed for pain 0 - No Longer Active Multiple Vitamins Daily tablet take 1 Tablet by Oral route every day 0 - Active citalopram 20 mg tablet Take 1 by mouth every day. - Active metformin 500 mg tablet Take 2 tablets by mouth twice a day. - Active simvastatin 20 mg tablet Take 1 tablet by mouth every day. - Active metoprolol tartrate 50 mg [...] hours before bedtime 0.375 MG - Active [place] 5 mg-325 mg tablet take 1 - [...] by mouth twice a day. - Active Immunizations Vaccine Date Status [...] Height Weight Pulse Rate Blood Pressure Temperature /10:15:00 88 /min 152/100 mm[Hg] 98.0 F Procedures Procedure Date Unknown Encounters Encounter Location Date Patient Visit [facility] Patient Visit Patient Visit [facility] Patient Visit [facility] Patient Visit [facility] Patient Visit [facility] Patient [facility] Patient [facility] Patient [facility] Patient [facility] Patient [facility] Patient [facility] Advance Directives Directive Effective Date Unknown
--- OUTSIDE RECORDS SUMMARY | 2016-11-03 09:50 | XMS REPORT | Referral Summary ---
Author Author [facility] Organization [facility] Address Unknown Phone Unavailable Care Team Providers Care Telegraphic Typewriter Operator Name Role Phone Vanessa Silverman Primary Care Physician [phone] Encounter Date(s): 11/19/14 - 11/19/14 [facility] [place] [address] [place] [address]- Discharge Diagnosis: Essential hypertension Discharge Diagnosis: Pure hypercholesterolemia Discharge Diagnosis: Depressive disorder Discharge Diagnosis: Diabetes mellitus, type 2 Discharge Diagnosis: Disorder of brain Discharge Diagnosis: Osteoarthritis Discharge Disposition: 01-Home or Self Care Attending Physician: Martinez Silverman MD Admitting Physician: Martinez Silverman MD Vital Signs Most recent to 1 oldest [Reference Range]: Temperature Tympanic 35.7 degC [36.6-38.1 degC] *LOW* (11/19/14 9:51 AM) Peripheral Pulse 84 bpm Rate [60-100 bpm] (11/19/14 9:51 AM) Respiratory Rate 16 br/min [14-20 br/min] (11/19/14 9:51 AM) Blood Pressure 140/82 mmHg [90-140/60-90 mmHg] (11/19/14 9:51 AM) Problem List Condition Effective Dates Status [...] DAY, # 90 tabs, 1 Refill(s), eRx: [facility] 2428, TAKE ONE TABLET BY MOUTH EVERY DAY Start Date: 10/22/14 Status: Ordered cyclobenzaprine 10 mg oral tablet 10 mg 1 tabs, Oral, TID, as needed for spasm, # 90 tabs, 0 Refill(s), Pharmacy: [place] [address], 1 tabs Oral TID,PRN:as needed for spasm Start Date: 01/26/15 Status: Ordered Eye Health Formula oral capsule 1 caps, Oral, Daily, # 90 caps, 0 Refill(s) Start Date: 08/18/14 Status: Ordered glipiZIDE 10 mg oral tablet, extended release See Instructions, TAKE ONE TABLET BY MOUTH ONCE DAILY, # 90 tabs, 1 Refill(s), eRx: [facility] 2428, TAKE ONE TABLET BY MOUTH ONCE DAILY Start Date: 01/05/15 Status: Ordered Glucometer strips (DME) DME Item One Touch Ultra Test Strips, Test daily DX 250.00, See Instructions, # 100 Each, 5 Refill(s), Pharmacy: [facility] #[id number], One Touch Ultra Test Strips, Test daily [...] DAY, # 90 tabs, 1 Refill(s), eRx: [facility] 2428, TAKE ONE TABLET BY MOUTH EVERY DAY Start Date: 02/09/15 Status: Ordered metFORMIN 500 mg oral tablet See Instructions, TAKE TWO TABLETS BY MOUTH TWICE DAILY, # 270 tabs, eRx: [facility] 2428, TAKE TWO TABLETS BY MOUTH TWICE DAILY Start Date: 03/17/15 Status: Ordered Metoprolol Tartrate 50 mg oral tablet See Instructions, TAKE ONE TABLET BY MOUTH ONCE DAILY, # 90 tabs, 1 Refill(s), eRx: [facility] 2428, TAKE ONE TABLET BY MOUTH ONCE DAILY Start Date: 02/18/15 Status: Ordered Mobic 7.5 mg oral tablet 7.5 mg 1 tabs, Oral, Daily, # 14 Each, 0 Refill(s), Pharmacy: [place] [address], 1 tabs Oral Daily Start Date: 01/26/15 Status: Ordered multivitamin Daily, 0 Refill(s) Start Date: 11/22/13 Status: Ordered [place] 5 mg-325 mg oral tablet 1 tabs, Oral, q4hr, as needed for pain, max tylenol in 24 hrs is 3000mg, # 50 tabs, 0 Refill(s) Start Date: 01/26/15 Status: Ordered 6RoomsUCH ULTRA TEST STRIPS See Instructions, TEST ONE TO TWO TIMES A DAY, # 50 strip, 2 Refill(s), eRx: [facility] #[id number], TEST ONE TO TWO TIMES A DAY Start Date: 03/09/15 Status: Ordered oxybutynin 5 mg oral tablet See Instructions, TAKE ONE TABLET BY MOUTH TWICE DAILY, # 180 tabs, 1 Refill(s) , eRx: [facility] 2428, TAKE ONE TABLET BY MOUTH TWICE DAILY Start Date: 02/09/15 Status: Ordered senna Oral, Daily, as needed for constipation, 0 Refill(s) Start Date: 08/18/14 Status: Ordered simvastatin 20 mg oral tablet See Instructions, TAKE ONE TABLET BY MOUTH EVERY DAY, # 90 tabs, 1 Refill(s), eRx: [facility] 2428, TAKE ONE TABLET BY MOUTH EVERY [...] and Plan Extracted from: Title: Office Visit Note Author: Martinez Silverman MD Date: 11/19/14 Assessment/Plan Depressive disorder Overall stable. No change in citalopram dosage this time. If symptoms worsen the let me know. Ordered: Office Visit Level 4 Est 14747 Diabetes mellitus, type 2 A1c is down to 7.1. I encouraged him to continue to work hard on his diet continue current medications. Report card reviewed and provided. Follow-up in 3 months. Ordered: Office Visit Level 4 Est 06022 Disorder of brain Chronic stable no change in current treatment. Encouraged him to continue to stay active. Ordered: Office Visit Level 4 Est 57989 Essential hypertension Blood pressure is reasonably controlled. Continue current treatment without change. Recheck in 3 months. Report card reviewed. Ordered: Office Visit Level 4 Est 28141 Osteoarthritis Stable no change in current treatment. Ordered: Office Visit Level 4 Est 66077 Pure hypercholesterolemia Stable no change in current treatment. Fasting lab in 3 months. Ordered: Office Visit Level 4 Est 28903 Sebaceous cyst mid back Schedule appointment for removal.
--- OUTSIDE RECORDS SUMMARY | 2016-11-03 09:50 | XMS REPORT | Referral Summary ---
Author Author [facility] Organization [facility] Address Unknown Phone Unavailable Care Team Providers Care Curing Supervisor Name Role Phone Vanessa Silverman Primary Care Physician [phone] Encounter Date(s): 06/20/16 - 06/20/16 [facility] [place] [address] [place] [address]- Discharge Diagnosis: Right foot pain Discharge Diagnosis: Closed fracture of fifth metatarsal bone Discharge Disposition: 01-Home or Self Care Attending Physician: Martinez Silverman MD Admitting Physician: Martinez Silverman MD Vital Signs Most recent to 1 oldest [Reference Range]: Temperature Tympanic 35.9 degC [36.6-38.1 degC] *LOW* (06/20/16 2:07 PM) Peripheral Pulse 60 bpm Rate [60-100 bpm] (06/20/16 2:07 PM) Respiratory Rate 16 br/min [14-20 br/min] (06/20/16 2:07 PM) Blood Pressure 114/72 mmHg [90-140/60-90 mmHg] (06/20/16 2:07 PM) Problem List Condition Effective Dates Status Health [...] Daily, # 90 tabs, 4 Refill(s), Pharmacy: [facility], 1 tabs Oral Daily Start Date: 09/01/15 Status: Ordered cyclobenzaprine 10 mg oral tablet 10 mg 1 tabs, Oral, TID, as needed for spasm, # 90 tabs, 0 Refill(s), Pharmacy: [facility], 1 tabs Oral TID,PRN:as needed for spasm Start Date: 01/26/15 Status: Ordered glipiZIDE 10 mg oral tablet, extended release 10 mg 1 tabs, Oral, Daily, [id number], # 90 tabs, 4 Refill(s), Pharmacy: [facility] Delivery, 1 tabs Oral Daily,Instr:[id number] Start Date: 09/01/15 Status: Ordered Glucometer Lancets (DME) DME Item LANCETS. PT. USES ONE TOUCH ULTRA MACHINE DX. E11.9 CHECK B/S BID , See Instructions, # 1 boxes, 3 Refill(s), Pharmacy: [facility] #[id number], LANCETS. PT. USES ONE TOUCH ULTRA MACHINE DX. E11.9 CHECK B/S BID, Supply Start Date: 02/24/16 Status: Ordered Glucometer strips (DME) DME Item One Touch Ultra Test Strips, Test 2 times daily DX E11.9, See Instructions, # 100 Each, 5 Refill(s), Pharmacy: [facility] #[id number], One Touch Ultra Test Strips, Test 2 [...] mg oral tablet 1 tabs, Oral, Daily, [id number], # 90 tabs, 4 Refill(s), Pharmacy: [facility] Start Date: 09/01/15 Status: Ordered metFORMIN 500 mg oral tablet 1,000 mg 2 tabs, Oral, BID, [id number], # 360 tabs, 4 Refill(s), Pharmacy: [facility], 2 tabs Oral BID,Instr:[id number] Start Date: 09/01/15 Status: Ordered Metoprolol Tartrate 50 mg oral tablet 50 mg 1 tabs, Oral, Daily, [id number], # 90 tabs, 4 Refill(s), Pharmacy: [facility], 1 tabs Oral Daily,Instr:[id number] Start Date: 09/01/15 Status: Ordered Mobic 7.5 mg oral tablet 7.5 mg 1 tabs, Oral, Daily, # 14 Each, 0 Refill(s), Pharmacy: [facility]28, 1 tabs Oral Daily Start Date: 01/26/15 Status: Ordered [place] 5 mg-325 mg oral tablet 1 tabs, Oral, q4hr, as needed for pain, max tylenol in 24 hrs is 3000mg, # 50 tabs, 0 Refill(s) Start Date: 01/26/15 Status: Ordered ONETOUCH ULTRA TEST STRIPS See Instructions, TEST ONE TO TWO TIMES A DAY, # 50 strip, 2 Refill(s), eRx: [facility] #[id number], TEST ONE TO TWO TIMES A DAY Start Date: 03/09/15 Status: Ordered oxybutynin 5 mg oral tablet 5 mg 1 tabs, Oral, BID, [id number], # 180 tabs, 4 Refill(s), Pharmacy: [facility], 1 tabs Oral BID,Instr:[id number] Start Date: 09/01/15 Status: Ordered senna Oral, [...] Visit Note Author: Martinez Silverman MD Date: 06/20/16 Assessment/Plan 1.Right foot pain See plan below Ordered: XR Foot Complete Right 2.Closed fracture of fifth metatarsal bone Immune place him in a walking bootand recheck in 1 month with an x-ray at that time. He may remove the boot to showeror when he issitting and relaxing watching TV but should have it onwith any walking or activity.
--- OUTSIDE RECORDS SUMMARY | 2016-11-03 09:51 | XMS REPORT | Referral Summary ---
Author Organization Unknown Address Unknown Phone Unavailable Care Team Providers Care Commercial Plumber Name Role Phone Vanessa Silverman Primary Care Physician [phone] Encounter VC Date(s): 08/18/14 - 08/18/14 [facility], [address] [place] [address]- Discharge Diagnosis: Pure hypercholesterolemia Discharge Diagnosis: Diabetes mellitus, type 2 Discharge Diagnosis: Essential hypertension Discharge Diagnosis: Disorder of brain Discharge Disposition: Home or Self Care Attending Physician: Martinez Silverman MD Admitting Physician: Martinez Silverman MD Vital Signs Most recent to 1 oldest [Reference Range]: Temperature Tympanic 35.7 degC [36.6-38.1 degC] *LOW* (08/18/14 10:00 AM) Peripheral Pulse 84 bpm Rate [60-100 bpm] (08/18/14 10:00 AM) Respiratory Rate 20 br/min [14-20 br/min] (08/18/14 10:00 AM) Blood Pressure 140/80 mmHg [90-140/60-90 mmHg] (08/18/14 10:00 AM) Problem List Condition Effective Dates Status [...] BY MOUTH EVERY DAY, # 90 tabs, 2 Refill(s), eRx: [facility] 2428, TAKE ONE TABLET BY MOUTH EVERY DAY Special Instructions: TAKE ONE TABLET BY MOUTH EVERY DAY Start Date: 01/27/14 Status: Ordered Eye Health Formula oral capsule 1 caps, Oral, Daily, # 90 caps, 0 Refill(s) Start Date: 08/18/14 Status: Ordered glipiZIDE 10 mg oral tablet, extended release See Instructions, TAKE ONE TABLET BY MOUTH EVERY DAY, # 90 tabs, eRx: [facility] 2428, TAKE ONE TABLET BY MOUTH EVERY DAY Special Instructions: TAKE ONE TABLET BY MOUTH EVERY DAY Start Date: 06/30/14 Status: Ordered HYDROcodone-acetaminophen 5 mg-325 mg oral tablet 1-2 tablets, Oral, q4hr, as needed for pain, # 24 tabs, 0 Refill(s) Start Date: 04/16/14 Status: Ordered Hyzaar 100 mg-12.5 mg oral tablet 1/2 tabs, Oral, Daily, 0 Refill(s) Start Date: 11/18/13 Status: Ordered latanoprost 0.005% ophthalmic solution 1 drops, Eye-Both, Bedtime (once a day), # 2.5 mL, 0 Refill(s) Start Date: 11/22/13 Status: Ordered metFORMIN 500 mg oral tablet See Instructions, TAKE TWO TABLETS BY MOUTH TWICE DAILY, # 270 tabs, 2 Refill(s) , Pharmacy: [place] [id number], TAKE TWO TABLETS BY MOUTH TWICE DAILY Special Instructions: TAKE TWO TABLETS BY MOUTH TWICE DAILY Start Date: 08/18/14 Status: Ordered Metoprolol Tartrate 50 mg oral tablet See Instructions, TAKE ONE TABLET BY MOUTH EVERY DAY, # 90 tabs, 1 Refill(s), eRx: [facility] 2428, TAKE ONE TABLET BY MOUTH EVERY DAY Special Instructions: TAKE ONE TABLET BY MOUTH EVERY DAY Start Date: 05/12/14 Status: Ordered multivitamin Daily, 0 Refill(s) Start Date: 11/22/13 Status: Ordered oxybutynin 5 mg oral tablet 1 tabs, Oral, BID, 0 Refill(s) Start Date: 11/18/13 Status: Ordered senna Oral, Daily, as needed for constipation, 0 Refill(s) Start Date: 08/18/14 Status: Ordered simvastatin 20 mg oral tablet See Instructions, TAKE ONE TABLET BY MOUTH EVERY DAY, # 90 tabs, eRx: [facility]28, TAKE ONE TABLET BY MOUTH EVERY DAY Special Instructions: TAKE ONE TABLET BY MOUTH EVERY DAY Start Date: 06/16/14 Status: Ordered Results No data available for this section Immunizations Vaccine Date Refusal Reason influenza virus vaccine, inactivated 04/08/14 influenza virus vaccine, live 04/17/13 influenza virus vaccine, live 04/12/12 pneumococcal 23-polyvalent vaccine 04/25/02 tetanus-diphth toxoids (Td) adult/adol 07/21/12 Procedures Procedure Date Related Diagnosis Body Site Parotidectomy1 04/16/14 None Shoulder2 1left side 2Left shoulder replacement Social History Social History Type Response Smoking Status Former smoker Assessment and Plan Extracted from: Title: Ambulatory Patient Education Author: Martinez Silverman MD Date: Family Medicine Diabetes and Foot Care Diabetes may cause you to have a poor blood supply (circulation ) to your legs and feet. Because of this, the skin may be thinner, break easier, and heal more slowly. You also may have nerve damage in your legs and feet causing decreased feeling. You may not notice minor injuries to your feet that could lead to serious problems or infections. Taking care of your feet is one of the most important things you can do for yourself. HOME CARE INSTRUCTIONS Do not go barefoot. Bare feet are easily injured. Check your feet daily for blisters, cuts, and redness. Wash your feet with warm water (not hot) and mild soap. Pat your feet and between your toes until completely dry. Apply a moisturizing lotion that does not contain alcohol or petroleum jelly to the dry skin on your feet and to dry brittle toenails. Do not put it between your toes. Trim your toenails straight across. Do not dig under them or around the cuticle. Do not cut corns or calluses, or try to remove them with medicine. Wear clean cotton socks or stockings every day. Make sure they are not too tight. Do not wear knee high stockings since they may decrease blood flow to your legs. Wear leather shoes that fit properly and have enough cushioning. To break in new shoes, wear them just a few hours a day to avoid injuring your feet. Wear shoes at all times, even in the house. Do not cross your legs. This may decrease the blood flow to your feet. If you find a minor scrape, cut, or break in the skin on your feet, keep it and the skin around it clean and dry. These areas may be cleansed with mild soap and water. Do not use peroxide, alcohol, iodine or Merthiolate. When you remove an adhesive bandage, be sure not to harm the skin around it. If you have a wound, look at it several times a day to make sure it is healing. Do not use heating pads or hot water bottles. [place] can occur. If you have lost feeling in your feet or legs, you may not know it is happening until it is too late. Report any cuts, sores or bruises to your caregiver. Do not wait! SEEK MEDICAL CARE IF: You have an injury that is not healing or you notice redness, numbness, burning, or tingling. Your feet always feel cold. You have pain or cramps in your legs and feet. SEEK IMMEDIATE MEDICAL CARE IF: There is increasing redness, swelling, or increasing pain in the wound. There is a red line that goes up your leg. Pus is coming from a wound. You develop an unexplained oral temperature above 102 F (38.9 C), or as your caregiver suggests. You notice a bad smell coming from an ulcer or wound. MAKE SURE YOU: Understand these instructions. Will watch your condition. Will get help right away if you are not doing well or get worse. Document Released: 05/26/2001 Document Revised: 08/20/2012 Document Reviewed: [facility] Patient Information 2014 [employer] [facility]. No follow up information was provided. Extracted from: Title: Office Visit Note Author: Martinez Silverman MD Date: 08/18/14 Assessment/Plan Diabetes mellitus, type 2 Overall diabetes is stable. A1c is 7.5. Continue current treatment plan. Recent laboratory studies and report card repeated. Follow-up in 3 months. 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 No change in current treatment. We talked about thickening liquids he is not interested in that. Follow-up in 3 months. Ordered: Office Visit Level 4 Est 41320 Essential hypertension Blood pressure is adequately controlled. Medications reviewed no changes in current therapy. Report card reviewed and provided. Follow-up in 3 months. Ordered: Office Visit Level 4 Est 14891 Pure hypercholesterolemia Lipid studies were reviewed from recent lab. Medications reviewed no change in current treatment is recommended. Ordered: Office Visit Level 4 Est 97330 Orders: metFORMIN, See Instructions, TAKE TWO TABLETS BY MOUTH TWICE DAILY, # 270 tabs, 2 Refill(s), Pharmacy: [facility], TAKE TWO TABLETS BY MOUTH TWICE DAILY
--- OUTSIDE RECORDS SUMMARY | 2016-11-03 09:51 | XMS REPORT | Continuity of Care Document ---
Author Author Brynn LEIGH, Marcus Mendez [facility] Ambulatory Address [address] [place] [address] Phone Care Team Providers Care Control Systems Drafting Officer Name Role Phone Martinez Silverman PP Unavailable Payers Payer name Insurance type Covered constitution party ID Authorization(s) Unknown Problems Condition Effective Dates (start - stop) Clinical Status Sialoadenitis - *Chronic Influenza Vaccine - Diabetes Mellitus Type 2, [...] hours before bedtime 0.375 MG - Active [place] 5 mg-325 mg tablet take 1 - [...] Height Weight Pulse Rate Blood Pressure Temperature /12:39:00 70.00 in 240.00 lbs 97.7 F Procedures Procedure Date Unknown Encounters Encounter Location Date Patient Visit [facility] ENT Patient Visit Patient Visit [facility] Patient Visit [facility] Patient Visit [facility] Patient Visit [facility] Patient Visit [facility] Patient Visit [facility] Neuro Patient Visit [facility] Patient Visit [facility] Patient [facility] Patient [facility] Patient [facility] Patient [facility] Patient [facility] Patient Visit [facility] ENT Patient Visit [facility] Patient Visit [facility] Patient Visit [facility] Patient Visit [facility] Advance Directives Directive Effective Date Unknown
--- OUTSIDE RECORDS SUMMARY | 2016-11-03 09:51 | XMS REPORT | Continuity of Care Document ---
Author Author [facility] Address [address] [place] [id number] Phone Unavailable Care Team Providers Care Software Sales Executive Name Role Phone Martinez Silverman PP Unavailable Payers Payer name Insurance type Covered democrat ID Authorization(s) Unknown Problems Condition Effective Dates (start - stop) Clinical Status Sialoadenitis - Acute Exacerbation Influenza Vaccine - Diabetes Mellitus Type 2, [...] hours before bedtime 0.375 MG - Active [place] 5 mg-325 mg tablet take 1 - [...] Measure Units Reference Range Abnormal Flag Comments Panel Description: Gram Stain AMS Gram Stain 16:00:00 Source: Miscellaneous Collected: 08/20/13 16:00 Site: NECK Received : 08/20/13 20:08 Order#: [id number] is the Site? : NECKGram Stain FINAL 08/20/13 22:28 OIF=Oil Immersion Field LPF=Low Power Field Many (10-20/OIF) white blood cells No microorganisms observedKEY FOR RESULTS: * - NEW RESULT - RESULT WAS MODIFIED AFTER FINAL STATUS SETPerform at [facility] [address] [facility] [address] Soil Fertility Extension Specialist Munir Bueno MD Panel Description: Wound Culture/Sensitivity-AMS Aerobic Wound Culture 16:00:00 Source: Miscellaneous Collected: 08/20/13 16:00 Site: NECK Received : 08/20/13 20:08 Order#: [id number] is the Site? : NECKAerobic Wound Culture PRELIM 08/21/13 10:30 No growth to dateKEY FOR RESULTS: * - NEW RESULT - RESULT WAS MODIFIED AFTER FINAL STATUS SETPerform at [facility] [address] [place] [address] Soil Fertility Extension Specialist Munir Bueno MD Panel Description: Wound Culture/Sensitivity-AMS Aerobic Wound Culture 16:00:00 Source: Miscellaneous Collected: 08/20/13 16:00 Site: NECK Received : 08/20/13 20:08 Order#: [id number] is the Site? : NECKAerobic Wound Culture FINAL 08/23/13 09:32 No growthKEY FOR RESULTS: * - NEW RESULT - RESULT WAS MODIFIED AFTER FINAL STATUS SETPerform at [facility] [address] [place] [address] Soil Fertility Extension Specialist Munir Bueno MD Panel Description: Gram Stain AMS Gram Stain 16:00:00 Source: Miscellaneous Collected: 08/20/13 16:00 Site: NECK Received : 08/20/13 20:08 Order#: [id number] is the Site? : NECKGram Stain FINAL 08/20/13 22:28 OIF=Oil Immersion Field LPF=Low Power Field Many (10-20/OIF) white blood cells No microorganisms observedKEY FOR RESULTS: * - NEW RESULT - RESULT WAS MODIFIED AFTER FINAL STATUS SETPerform at [facility] [address] [place] [address] Soil Fertility Extension Specialist Munir Bueno MD Panel Description: Gram Stain AMS Gram Stain 16:00:00 Source: Miscellaneous Collected: 08/20/13 16:00 Site: NECK Received : 08/20/13 20:08 Order#: [id number] is the Site? : NECKGram Stain FINAL 08/20/13 22:28 OIF=Oil Immersion Field LPF=Low Power Field Many (10-20/OIF) white blood cells No microorganisms observedKEY FOR RESULTS: * - NEW RESULT - RESULT WAS MODIFIED AFTER FINAL STATUS SETPerform at [facility] [address] [facility] [address] Soil Fertility Extension Specialist Munir Bueno MD Vital Signs Date / Time: Height Weight Pulse Rate Blood Pressure Temperature 14:51:00 70.00 in 240.00 lbs 97.9 F Procedures Procedure Date Unknown Encounters Encounter Location Date Patient Visit [facility] ENT Patient Visit Patient Visit [facility] Patient Visit [facility] Patient Visit [facility] Patient [facility] Patient [facility] Patient [facility] Patient Visit [facility] Patient [facility] Patient [facility] Patient [facility] Patient [facility] Patient [facility] Patient Visit [facility] Patient Visit [facility] Patient [facility] Patient [facility] Patient [facility] Patient Visit [facility] Patient Visit [facility] Patient [facility] Patient Visit [facility] ENT Patient Visit [facility] Patient Visit [facility] ENT Patient Visit [facility] Patient Visit [facility] Patient Visit [facility] Advance Directives Directive Effective Date Unknown
--- OUTSIDE RECORDS SUMMARY | 2016-11-03 09:51 | XMS REPORT | Referral Summary ---
Author Author [facility] Organization [facility] Address Unknown Phone Unavailable Care Team Providers Care Test Car Driver Name Role Phone Vanessa Silverman Primary Care Physician [phone] Encounter Date(s): 11/19/14 - 11/19/14 [facility] [address] [place] [address]- Discharge Diagnosis: Essential hypertension Discharge Diagnosis: Pure hypercholesterolemia Discharge Diagnosis: Depressive disorder Discharge Diagnosis: Diabetes mellitus, type 2 Discharge Diagnosis: Disorder of brain Discharge Diagnosis: Osteoarthritis Discharge Disposition: 01-Home or Self Care Attending Physician: aMrtinez Silverman MD Admitting Physician: Martinez Silverman MD [...] DAY, # 90 tabs, 1 Refill(s), eRx: [facility], TAKE ONE TABLET BY MOUTH EVERY DAY Start Date: 10/22/14 Status: Ordered cyclobenzaprine 10 mg oral tablet 10 mg 1 tabs, Oral, TID, as needed for spasm, # 90 tabs, 0 Refill(s), Pharmacy: [place] [id number], 1 tabs Oral TID,PRN:as needed for spasm Start Date: 01/26/15 Status: Ordered Eye Health Formula oral capsule 1 caps, Oral, Daily, # 90 caps, 0 Refill(s) Start Date: 08/18/14 Status: Ordered glipiZIDE 10 mg oral tablet, extended release See Instructions, TAKE ONE TABLET BY MOUTH ONCE DAILY, # 90 tabs, 1 Refill(s), eRx: [facility] 2428, TAKE ONE TABLET BY MOUTH ONCE DAILY Start Date: 01/05/15 Status: Ordered Glucometer strips (DME) DME Item One Touch Ultra Test Strips, Test daily DX 250.00, See Instructions, # 100 Each, 5 Refill(s), Pharmacy: [facility] #[id number], One Touch Ultra Test Strips, Test daily [...] DAY, # 90 tabs, 1 Refill(s), eRx: [facility], TAKE ONE TABLET BY MOUTH EVERY DAY Start Date: 02/09/15 Status: Ordered metFORMIN 500 mg oral tablet See Instructions, TAKE TWO TABLETS BY MOUTH TWICE DAILY, # 270 tabs, eRx: [facility] 2428, TAKE TWO TABLETS BY MOUTH TWICE DAILY Start Date: 03/17/15 Status: Ordered Metoprolol Tartrate 50 mg oral tablet See Instructions, TAKE ONE TABLET BY MOUTH ONCE DAILY, # 90 tabs, 1 Refill(s), eRx: [facility] 2428, TAKE ONE TABLET BY MOUTH ONCE DAILY Start Date: 02/18/15 Status: Ordered Mobic 7.5 mg oral tablet 7.5 mg 1 tabs, Oral, Daily, # 14 Each, 0 Refill(s), Pharmacy: [place] [id number], 1 tabs Oral Daily Start Date: 01/26/15 Status: Ordered multivitamin Daily, 0 Refill(s) Start Date: 11/22/13 Status: Ordered [place] 5 mg-325 mg oral tablet 1 tabs, Oral, q4hr, as needed for pain, max tylenol in 24 hrs is 3000mg, # 50 tabs, 0 Refill(s) Start Date: 01/26/15 Status: Ordered [employer] ULTRA TEST STRIPS See Instructions, TEST ONE TO TWO TIMES A DAY, # 50 strip, 2 Refill(s), eRx: [facility] #[id number], TEST ONE TO TWO TIMES A DAY Start Date: 03/09/15 Status: Ordered oxybutynin 5 mg oral tablet See Instructions, TAKE ONE TABLET BY MOUTH TWICE DAILY, # 180 tabs, 1 Refill(s) , eRx: [facility] 2428, TAKE ONE TABLET BY MOUTH TWICE DAILY Start Date: 02/09/15 Status: Ordered senna Oral, Daily, as needed for constipation, 0 Refill(s) Start Date: 08/18/14 Status: Ordered simvastatin 20 mg oral tablet See Instructions, TAKE ONE TABLET BY MOUTH EVERY DAY, # 90 tabs, 1 Refill(s), eRx: [facility] 2428, TAKE ONE TABLET BY MOUTH EVERY [...] know. Ordered: Office Visit Level 4 Est 74568 Diabetes mellitus, type 2 A1c is down to 7.1. I encouraged him to continue to work hard on his diet continue current medications. Report card reviewed and provided. Follow-up in 3 months. Ordered: Office Visit Level 4 Est 23472 Disorder of brain Chronic stable no change in current treatment. Encouraged him to continue to stay active. Ordered: Office Visit Level 4 Est 72911 Essential hypertension Blood pressure is reasonably controlled. Continue current treatment without change. Recheck in 3 months. Report card reviewed. Ordered: Office Visit Level 4 Est 48744 Osteoarthritis Stable no change in current treatment. Ordered: Office Visit Level 4 Est 47392 Pure hypercholesterolemia Stable no change in current treatment. Fasting lab in 3 months. Ordered: Office Visit Level 4 Est 07296 Sebaceous cyst mid back Schedule appointment for removal.
--- OUTSIDE RECORDS SUMMARY | 2016-11-03 09:51 | XMS REPORT | Referral Summary ---
Author Author [facility] Organization [facility] Address Unknown Phone Unavailable Care Team Providers Care Electrical Repairer Name Role Phone Vanessa Silverman Primary Care Physician [phone] Encounter [facility] Date(s): 04/09/15 - 04/09/15 [facility] [address] [place] [address]- Discharge Disposition: 01-Home or Self Care Attending [...] Daily, # 90 tabs, 4 Refill(s), Pharmacy: [facility], 1 tabs Oral Daily Start Date: 09/01/15 Status: Ordered cyclobenzaprine 10 mg oral tablet 10 mg 1 tabs, Oral, TID, as needed for spasm, # 90 tabs, 0 Refill(s), Pharmacy: [facility], 1 tabs Oral TID,PRN:as needed for spasm Start Date: 01/26/15 Status: Ordered glipiZIDE 10 mg oral tablet, extended release 10 mg 1 tabs, Oral, Daily, [id number], # 90 tabs, 4 Refill(s), Pharmacy: [facility], 1 tabs Oral Daily,Instr:[id number] Start Date: 09/01/15 Status: Ordered Glucometer strips (DME) DME Item One Touch Ultra Test Strips, Test daily DX 250.00, See Instructions, # 100 Each, 5 Refill(s), Pharmacy: [facility] #[id number], One Touch Ultra Test Strips, Test daily [...] mg oral tablet 1 tabs, Oral, Daily, [id number], # 90 tabs, 4 Refill(s), Pharmacy: [facility] Start Date: 09/01/15 Status: Ordered metFORMIN 500 mg oral tablet 1,000 mg 2 tabs, Oral, BID, [id number], # 360 tabs, 4 Refill(s), Pharmacy: [facility], 2 tabs Oral BID,Instr:[id number] Start Date: 09/01/15 Status: Ordered Metoprolol Tartrate 50 mg oral tablet 50 mg 1 tabs, Oral, Daily, [id number], # 90 tabs, 4 Refill(s), Pharmacy: [facility], 1 tabs Oral Daily,Instr:[id number] Start Date: 09/01/15 Status: Ordered Mobic 7.5 mg oral tablet 7.5 mg 1 tabs, Oral, Daily, # 14 Each, 0 Refill(s), Pharmacy: [facility] 2428, 1 tabs Oral Daily Start Date: 01/26/15 Status: Ordered [place] 5 mg-325 mg oral tablet 1 tabs, Oral, q4hr, as needed for pain, max tylenol in 24 hrs is 3000mg, # 50 tabs, 0 Refill(s) Start Date: 01/26/15 Status: Ordered ONETOUCH ULTRA TEST STRIPS See Instructions, TEST ONE TO TWO TIMES A DAY, # 50 strip, 2 Refill(s), eRx: [facility] #[id number], TEST ONE TO TWO TIMES A DAY Start Date: 03/09/15 Status: Ordered oxybutynin 5 mg oral tablet 5 mg 1 tabs, Oral, BID, [id number], # 180 tabs, 4 Refill(s), Pharmacy: [facility], 1 tabs Oral BID,Instr:[id number] Start Date: 09/01/15 Status: Ordered senna Oral, [...]
--- OUTSIDE RECORDS SUMMARY | 2016-11-03 09:51 | XMS REPORT | Referral Summary ---
Author Author [facility] Organization [facility] Address Unknown Phone Unavailable Care Team Providers Care Statistical Engineer Name Role Phone Vanessa Silverman Primary Care Physician [phone] Encounter [facility] [id number] Date(s): 02/24/16 - 02/24/16 [facility] [address] [place] [address]- Discharge Diagnosis: Diabetes mellitus, type 2 Discharge Diagnosis: Essential hypertension Discharge Diagnosis: Restless legs syndrome (RLS) Discharge Diagnosis: Depressive disorder Discharge Diagnosis: Disorder of brain (disorder) Discharge Diagnosis: Pure hypercholesterolemia Discharge Disposition: 01-Home or Self Care Attending Physician: Martinez Silverman MD Admitting Physician: Martinez Silverman MD Vital Signs Most recent to 1 oldest [Reference Range]: Temperature Tympanic 36.2 degC [36.6-38.1 degC] *LOW* (02/24/16 1:33 PM) Peripheral Pulse 77 bpm Rate [60-100 bpm] (02/24/16 1:33 PM) Blood Pressure 92/54 mmHg [90-140/60-90 mmHg] (02/24/16 1:33 PM) SpO2 97 % (02/24/16 1:33 PM) Problem List Condition Effective Dates Status [...] Daily, # 90 tabs, 4 Refill(s), [facility], 1 tabs Oral Daily Start Date: 09/01/15 Status: Ordered cyclobenzaprine 10 mg oral tablet 10 mg 1 tabs, Oral, TID, as needed for spasm, # 90 tabs, 0 Refill(s), Pharmacy: [facility] 24[facility], 1 tabs Oral TID,PRN:as needed for spasm Start Date: 01/26/15 Status: Ordered glipiZIDE 10 mg oral tablet, extended release 10 mg 1 tabs, Oral, Daily, [id number], # 90 tabs, 4 Refill(s), Pharmacy: [facility], 1 tabs Oral Daily,Instr:[id number] Start Date: 09/01/15 Status: Ordered Glucometer Lancets (DME) DME Item LANCETS. PT. USES ONE TOUCH ULTRA MACHINE DX. E11.9 CHECK B/S BID , See Instructions, # 1 boxes, 3 Refill(s), Pharmacy: [facility] #[id number], LANCETS. PT. USES ONE TOUCH ULTRA MACHINE DX. E11.9 CHECK B/S BID, Supply Start Date: 02/24/16 Status: Ordered Glucometer strips (DME) DME Item One Touch Ultra Test Strips, Test daily DX 250.00, See Instructions, # 100 Each, 5 Refill(s), Pharmacy: [facility] #[id number], One Touch Ultra Test Strips, Test daily [...] mg oral tablet 1 tabs, Oral, Daily, [id number], # 90 tabs, 4 Refill(s), Pharmacy: [facility] Start Date: 09/01/15 Status: Ordered metFORMIN 500 mg oral tablet 1,000 mg 2 tabs, Oral, BID, [id number], # 360 tabs, 4 Refill(s), Pharmacy: [facility], 2 tabs Oral BID,Instr:[id number] Start Date: 09/01/15 Status: Ordered Metoprolol Tartrate 50 mg oral tablet 50 mg 1 tabs, Oral, Daily, [id number], # 90 tabs, 4 Refill(s), Pharmacy: [facility], 1 tabs Oral Daily,Instr:[id number] Start Date: 09/01/15 Status: Ordered Mobic 7.5 mg oral tablet 7.5 mg 1 tabs, Oral, Daily, # 14 Each, 0 Refill(s), Pharmacy: [facility] 2428, 1 tabs Oral Daily Start Date: 01/26/15 Status: Ordered [place] 5 mg-325 mg oral tablet 1 tabs, Oral, q4hr, as needed for pain, max tylenol in 24 hrs is 3000mg, # 50 tabs, 0 Refill(s) Start Date: 01/26/15 Status: Ordered ONETOUCH ULTRA TEST STRIPS See Instructions, TEST ONE TO TWO TIMES A DAY, # 50 strip, 2 Refill(s), eRx: [facility] #[id number], TEST ONE TO TWO TIMES A DAY Start Date: 03/09/15 Status: Ordered oxybutynin 5 mg oral tablet 5 mg 1 tabs, Oral, BID, [id number], # 180 tabs, 4 Refill(s), Pharmacy: [facility], 1 tabs Oral BID,Instr:[id number] Start Date: 09/01/15 Status: Ordered senna Oral, [...] Date Refusal Reason influenza virus vaccine, inactivated 02/24/16 influenza virus vaccine, inactivated 04/09/15 influenza virus [...] Visit Note Author: Martinez Silverman MD Date: 02/24/16 Assessment/Plan 1.Diabetes mellitus, type 2 A1c is relatively stable at 7.4. I encouraged him to be a little more careful with his diet continue current treatment plan. Report card reviewed and provided. 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 He is rarely up and out of his wheelchair at this point. Letter will be dictatedto obtaina new wheelchair since his old one is breaking down. Continue to monitor recheck in 3 months. Ordered: Office Visit Level 4 Est 12902 3.Essential hypertension Blood pressure is running on the low side. Him and have him hold his metoprolol no monitor his blood pressures at home. Recheck here in 3 months. Recent laboratory studies reviewed and report card reviewed and provided. Ordered: Office Visit Level 4 Est 75653 4.Pure hypercholesterolemia Recent laboratory studies reviewed relatively stable numbers no change in current treatment is recommended. Ordered: Office Visit Level 4 Est 91545 5.Restless legs syndrome (RLS) Chronic stable no change in current treatment. Ordered: Office Visit Level 4 Est 17542 6.Depressive disorder Overall well-controlled no change in current treatment. Ordered: Office Visit Level 4 Est 01276
--- OUTSIDE RECORDS SUMMARY | 2016-11-03 09:51 | XMS REPORT | Referral Summary ---
Author Author [facility] Organization [facility] Address Unknown Phone Unavailable Care Team Providers Care Supervisor Ship Maintenance Services Name Role Phone Vanessa Silverman Primary Care Physician [phone] Encounter [facility] Date(s): 03/12/15 - 03/12/15 [facility] [address] [place] [address]- Discharge Diagnosis: Right hip pain Discharge Disposition: 01-Home or Self Care Attending Physician: Martinez Silverman MD Admitting Physician: Martinez Silverman MD Vital Signs Most recent to 1 oldest [Reference Range]: Temperature Tympanic 36.4 degC [36.6-38.1 degC] *LOW* (03/12/15 10:47 AM) Peripheral Pulse 88 bpm Rate [60-100 bpm] (03/12/15 10:47 AM) Respiratory Rate 22 br/min [14-20 br/min] *HI* (03/12/15 10:47 AM) Blood Pressure 124/58 mmHg [90-140/60-90 mmHg] (03/12/15 10:47 AM) SpO2 95 % (03/12/15 10:47 AM) Problem List Condition Effective Dates [...] DAY, # 90 tabs, 1 Refill(s), eRx: [facility] 2428, TAKE ONE TABLET BY MOUTH EVERY DAY Start Date: 10/22/14 Status: Ordered cyclobenzaprine 10 mg oral tablet 10 mg 1 tabs, Oral, TID, as needed for spasm, # 90 tabs, 0 Refill(s), Pharmacy: [place] [address], 1 tabs Oral TID,PRN:as needed for spasm Start Date: 01/26/15 Status: Ordered Eye Health Formula oral capsule 1 caps, Oral, Daily, # 90 caps, 0 Refill(s) Start Date: 08/18/14 Status: Ordered glipiZIDE 10 mg oral tablet, extended release See Instructions, TAKE ONE TABLET BY MOUTH ONCE DAILY, # 90 tabs, 1 Refill(s), eRx: [place] [address], TAKE ONE TABLET BY MOUTH ONCE DAILY Start Date: 01/05/15 Status: Ordered Glucometer strips (DME) DME Item One Touch Ultra Test Strips, Test daily DX 250.00, See Instructions, # 100 Each, 5 Refill(s), Pharmacy: [facility] #[id number], One Touch Ultra Test Strips, Test daily [...] DAY, # 90 tabs, 1 Refill(s), eRx: [place] [id number], TAKE ONE TABLET BY MOUTH EVERY DAY Start Date: 02/09/15 Status: Ordered metFORMIN 500 mg oral tablet See Instructions, TAKE TWO TABLETS BY MOUTH TWICE DAILY, # 270 tabs, 2 Refill(s) , Pharmacy: [place] [address], TAKE TWO TABLETS BY MOUTH TWICE DAILY Start Date: 08/18/14 Status: Ordered Metoprolol Tartrate 50 mg oral tablet See Instructions, TAKE ONE TABLET BY MOUTH ONCE DAILY, # 90 tabs, 1 Refill(s), eRx: [facility] 2428, TAKE ONE TABLET BY MOUTH ONCE DAILY Start Date: 02/18/15 Status: Ordered Mobic 7.5 mg oral tablet 7.5 mg 1 tabs, Oral, Daily, # 14 Each, 0 Refill(s), Pharmacy: [facility] 2428, 1 tabs Oral Daily Start Date: 01/26/15 Status: Ordered multivitamin Daily, 0 Refill(s) Start Date: 11/22/13 Status: Ordered [place] 5 mg-325 mg oral tablet 1 tabs, Oral, q4hr, as needed for pain, max tylenol in 24 hrs is 3000mg, # 50 tabs, 0 Refill(s) Start Date: 01/26/15 Status: Ordered [employer] ULTRA TEST STRIPS See Instructions, TEST ONE TO TWO TIMES A DAY, # 50 strip, 2 Refill(s), eRx: [facility] #[id number], TEST ONE TO TWO TIMES A DAY Start Date: 03/09/15 Status: Ordered oxybutynin 5 mg oral tablet See Instructions, TAKE ONE TABLET BY MOUTH TWICE DAILY, # 180 tabs, 1 Refill(s) , eRx: [facility] 2428, TAKE ONE TABLET BY MOUTH TWICE DAILY Start Date: 02/09/15 Status: Ordered senna Oral, Daily, as needed for constipation, 0 Refill(s) Start Date: 08/18/14 Status: Ordered simvastatin 20 mg oral tablet See Instructions, TAKE ONE TABLET BY MOUTH EVERY DAY, # 90 tabs, 1 Refill(s), eRx: [facility] 2428, TAKE ONE TABLET BY MOUTH [...] Visit Note Author: Martinez Silverman MD Date: 03/12/15 Assessment/Plan Right hip pain I've recommended an x-ray and we'll see what that shows. His pain is actually doing better. I encouraged him to have regular doses of MiraLAX to try to keep him from being constipated. He may continue use hydrocodone as needed for his pain along with heat. If there is abnormalities on the x-ray will let them know. I suspect there are some arthritic changes that are causing his pain. Ordered: XR Hip Complete Right
--- OUTSIDE RECORDS SUMMARY | 2016-11-03 09:51 | XMS REPORT | Referral Summary ---
Author Author [facility] Organization [facility] Address Unknown Phone Unavailable Care Team Providers Care Head Neck Surgeon Name Role Phone Vanessa Silverman Primary Care Physician [phone] Encounter [facility] Date(s): 03/12/15 - 03/12/15 [facility] [address] [place] [address]- Discharge Diagnosis: Right hip pain Discharge Disposition: [...] Daily, # 90 tabs, 4 Refill(s), Pharmacy: [facility], 1 tabs Oral Daily Start Date: 09/01/15 Status: Ordered cyclobenzaprine 10 mg oral tablet 10 mg 1 tabs, Oral, TID, as needed for spasm, # 90 tabs, 0 Refill(s), Pharmacy: [facility] 24[facility], 1 tabs Oral TID,PRN:as needed for spasm Start Date: 01/26/15 Status: Ordered glipiZIDE 10 mg oral tablet, extended release 10 mg 1 tabs, Oral, Daily, [id number], # 90 tabs, 4 Refill(s), Pharmacy: [facility], 1 tabs Oral Daily,Instr:[id number] Start Date: 09/01/15 Status: Ordered Glucometer strips (DME) DME Item One Touch Ultra Test Strips, Test daily DX 250.00, See Instructions, # 100 Each, 5 Refill(s), Pharmacy: [facility] #[id number], One Touch Ultra Test Strips, Test daily [...] mg oral tablet 1 tabs, Oral, Daily, [id number], # 90 tabs, 4 Refill(s), Pharmacy: [facility] Start Date: 09/01/15 Status: Ordered metFORMIN 500 mg oral tablet 1,000 mg 2 tabs, Oral, BID, [id number], # 360 tabs, 4 Refill(s), Pharmacy: [facility], 2 tabs Oral BID,Instr:[id number] Start Date: 09/01/15 Status: Ordered Metoprolol Tartrate 50 mg oral tablet 50 mg 1 tabs, Oral, Daily, [id number], # 90 tabs, 4 Refill(s), Pharmacy: [facility], 1 tabs Oral Daily,Instr:[id number] Start Date: 09/01/15 Status: Ordered Mobic 7.5 mg oral tablet 7.5 mg 1 tabs, Oral, Daily, # 14 Each, 0 Refill(s), Pharmacy: [facility] 2428, 1 tabs Oral Daily Start Date: 01/26/15 Status: Ordered [place] 5 mg-325 mg oral tablet 1 tabs, Oral, q4hr, as needed for pain, max tylenol in 24 hrs is 3000mg, # 50 tabs, 0 Refill(s) Start Date: 01/26/15 Status: Ordered ONETOUCH ULTRA TEST STRIPS See Instructions, TEST ONE TO TWO TIMES A DAY, # 50 strip, 2 Refill(s), eRx: [facility] #[id number], TEST ONE TO TWO TIMES A DAY Start Date: 03/09/15 Status: Ordered oxybutynin 5 mg oral tablet 5 mg 1 tabs, Oral, BID, [id number], # 180 tabs, 4 Refill(s), Pharmacy: [facility], 1 tabs Oral BID,Instr:[id number] Start Date: 09/01/15 Status: Ordered senna Oral, [...]
--- OUTSIDE RECORDS SUMMARY | 2016-11-03 09:51 | XMS REPORT | Referral Summary ---
Author Author [facility] Organization [facility] Address Unknown Phone Unavailable Care Team Providers Care Air Vice Marshal Name Role Phone Vanessa Silverman Primary Care Physician [phone] Encounter Date(s): 11/19/14 - 11/19/14 [facility] [address] [place] [address]- Discharge Diagnosis: Essential hypertension Discharge Diagnosis: Pure [...] # 90 tabs, 1 Refill(s), eRx: [facility] 2428, TAKE ONE TABLET BY MOUTH EVERY DAY Start Date: 10/22/14 Status: Ordered cyclobenzaprine 10 mg oral tablet 10 mg 1 tabs, Oral, TID, as needed for spasm, # 90 tabs, 0 Refill(s), Pharmacy: [place] [address], 1 tabs Oral TID,PRN:as needed for spasm Start Date: 01/26/15 Status: Ordered [employer] Health Formula oral capsule 1 caps, Oral, Daily, # 90 caps, 0 Refill(s) Start Date: 08/18/14 Status: Ordered glipiZIDE 10 mg oral tablet, extended release See Instructions, TAKE ONE TABLET BY MOUTH ONCE DAILY, # 90 tabs, 1 Refill(s), eRx: [facility] 2428, TAKE ONE TABLET BY MOUTH ONCE DAILY Start Date: 01/05/15 Status: Ordered Glucometer strips (DME) DME Item One Touch Ultra Test Strips, Test daily DX 250.00, See Instructions, # 100 Each, 5 Refill(s), Pharmacy: [facility] #[id number], One Touch Ultra Test Strips, Test daily [...] # 90 tabs, 1 Refill(s), eRx: [facility] 2428, TAKE ONE TABLET BY MOUTH EVERY DAY Start Date: 02/09/15 Status: Ordered metFORMIN 500 mg oral tablet See Instructions, TAKE TWO TABLETS BY MOUTH TWICE DAILY, # 270 tabs, eRx: [facility] 2428, TAKE TWO TABLETS BY MOUTH TWICE DAILY Start Date: 03/17/15 Status: Ordered Metoprolol Tartrate 50 mg oral tablet See Instructions, TAKE ONE TABLET BY MOUTH ONCE DAILY, # 90 tabs, 1 Refill(s), eRx: [facility] 2428, TAKE ONE TABLET BY MOUTH ONCE DAILY Start Date: 02/18/15 Status: Ordered Mobic 7.5 mg oral tablet 7.5 mg 1 tabs, Oral, Daily, # 14 Each, 0 Refill(s), Pharmacy: [place] [address], 1 tabs Oral Daily Start Date: 01/26/15 Status: Ordered multivitamin Daily, 0 Refill(s) Start Date: 11/22/13 Status: Ordered [place] 5 mg-325 mg oral tablet 1 tabs, Oral, q4hr, as needed for pain, max tylenol in 24 hrs is 3000mg, # 50 tabs, 0 Refill(s) Start Date: 01/26/15 Status: Ordered [employer] ULTRA TEST STRIPS See Instructions, TEST ONE TO TWO TIMES A DAY, # 50 strip, 2 Refill(s), eRx: [facility] #[id number], TEST ONE TO TWO TIMES A DAY Start Date: 03/09/15 Status: Ordered oxybutynin 5 mg oral tablet See Instructions, TAKE ONE TABLET BY MOUTH TWICE DAILY, # 180 tabs, 1 Refill(s) , eRx: [facility] 2428, TAKE ONE TABLET BY MOUTH TWICE DAILY Start Date: 02/09/15 Status: Ordered senna Oral, Daily, as needed for constipation, 0 Refill(s) Start Date: 08/18/14 Status: Ordered simvastatin 20 mg oral tablet See Instructions, TAKE ONE TABLET BY MOUTH EVERY DAY, # 90 tabs, 1 Refill(s), eRx: [facility] 2428, TAKE ONE TABLET BY MOUTH EVERY [...] know. Ordered: Office Visit Level 4 Est 73456 Diabetes mellitus, type 2 A1c is down to 7.1. I encouraged him to continue to work hard on his diet continue current medications. Report card reviewed and provided. Follow-up in 3 months. Ordered: Office Visit Level 4 Est 70775 Disorder of brain Chronic stable no change in current treatment. Encouraged him to continue to stay active. Ordered: Office Visit Level 4 Est 74086 Essential hypertension Blood pressure is reasonably controlled. Continue current treatment without change. Recheck in 3 months. Report card reviewed. Ordered: Office Visit Level 4 Est 70105 Osteoarthritis Stable no change in current treatment. Ordered: Office Visit Level 4 Est 12985 Pure hypercholesterolemia Stable no change in current treatment. Fasting lab in 3 months. Ordered: Office Visit Level 4 Est 50457 Sebaceous cyst mid back Schedule appointment for removal.
--- OUTSIDE RECORDS SUMMARY | 2016-11-03 09:52 | XMS REPORT | Referral Summary ---
Author Author [facility] Organization [facility] Address Unknown Phone Unavailable Care Team Providers Care Texture Artist Name Role Phone Vanessa Silverman Primary Care Physician [phone] Encounter [facility] Date(s): 12/02/14 - 12/02/14 [facility] [address] [place] [id number]- Discharge Diagnosis: Abscess of back Discharge Disposition: 01-Home or Self Care Attending Physician: Martinez Silverman MD Admitting Physician: Martinez Silverman MD Vital Signs Most recent to 1 oldest [Reference Range]: Temperature Tympanic 35.8 degC [36.6-38.1 degC] *LOW* (12/02/14 9:51 AM) Peripheral Pulse 76 bpm Rate [60-100 bpm] (12/02/14 9:51 AM) Respiratory Rate 20 br/min [14-20 br/min] (12/02/14 9:51 AM) Blood Pressure 124/66 mmHg [90-140/60-90 mmHg] (12/02/14 9:51 AM) Problem List Condition Effective Dates [...] DAILY, # 90 tabs, 1 Refill(s), eRx: [facility], TAKE ONE TABLET BY MOUTH ONCE DAILY Start Date: 04/20/15 Status: Ordered cyclobenzaprine 10 mg oral tablet 10 mg 1 tabs, Oral, TID, as needed for spasm, # 90 tabs, 0 Refill(s), Pharmacy: [place] [id number], 1 tabs Oral TID,PRN:as needed for spasm Start Date: 01/26/15 Status: Ordered glipiZIDE 10 mg oral tablet, extended release See Instructions, TAKE ONE TABLET BY MOUTH ONCE DAILY, # 90 tabs, 1 Refill(s), eRx: [facility]28, TAKE ONE TABLET BY MOUTH ONCE DAILY Start Date: 01/05/15 Status: Ordered Glucometer strips (DME) DME Item One Touch Ultra Test Strips, Test daily DX 250.00, See Instructions, # 100 Each, 5 Refill(s), Pharmacy: [facility] #[id number], One Touch Ultra Test Strips, Test daily [...] DAY, # 90 tabs, 1 Refill(s), eRx: [place] [id number], TAKE ONE TABLET BY MOUTH EVERY DAY Start Date: 02/09/15 Status: Ordered metFORMIN 500 mg oral tablet See Instructions, TAKE TWO TABLETS BY MOUTH TWICE DAILY, # 270 tabs, 1 Refill(s) , eRx: [facility] 2428, TAKE TWO TABLETS BY MOUTH TWICE DAILY Start Date: 05/18/15 Status: Ordered Metoprolol Tartrate 50 mg oral tablet See Instructions, TAKE ONE TABLET BY MOUTH ONCE DAILY, # 90 tabs, 1 Refill(s), eRx: [facility] 2428, TAKE ONE TABLET BY MOUTH ONCE DAILY Start Date: 02/18/15 Status: Ordered Mobic 7.5 mg oral tablet 7.5 mg 1 tabs, Oral, Daily, # 14 Each, 0 Refill(s), Pharmacy: [facility], 1 tabs Oral Daily Start Date: 01/26/15 Status: Ordered [place] 5 mg-325 mg oral tablet 1 tabs, Oral, q4hr, as needed for pain, max tylenol in 24 hrs is 3000mg, # 50 tabs, 0 Refill(s) Start Date: 01/26/15 Status: Ordered ONETOUCH ULTRA TEST STRIPS See Instructions, TEST ONE TO TWO TIMES A DAY, # 50 strip, 2 Refill(s), eRx: [facility] #[id number], TEST ONE TO TWO TIMES A DAY Start Date: 03/09/15 Status: Ordered oxybutynin 5 mg oral tablet See Instructions, TAKE ONE TABLET BY MOUTH TWICE DAILY, # 180 tabs, 1 Refill(s) , eRx: [facility], TAKE ONE TABLET [...] Procedures Procedure Date Related Diagnosis Body Site Incision and drainage of abscess (eg, 12/02/14 carbuncle, suppurative hidradenitis, cutaneous or subcutaneous abscess, cyst, furuncle, or paronychia); simple or single Parotidectomy1 04/16/14 None Shoulder2 1left side 2Left shoulder replacement Social History Social History Type Response Smoking Status Former smoker Assessment and Plan Extracted from: Title: Office Visit Note Author: Martinez Silverman MD Date: 12/02/14 Assessment/Plan Abscess of back If his permission the area was prepped with Betadine and anesthetized 1 percent lidocaine with epinephrine and then stab incision was made with an 11 blade. Purulent drainage was expressed from the abscess cavity. It isn't packed with quarter inch gauze and a sterile dressing applied. We'll place him on some Bactrim DS 1 by mouth twice a day 10 days. We will schedule a time to have the cyst removed later in January. She has any further problems or concerns he'll let us know. Ordered: Drain Skin Abscess, Simple/Single [address]3055
--- OUTSIDE RECORDS SUMMARY | 2016-11-03 09:52 | XMS REPORT | Referral Summary ---
Author Author [facility] Organization [facility] Address Unknown Phone Unavailable Care Team Providers Care Broadcast Technician Name Role Phone Vanessa Silverman Primary Care Physician [phone] Encounter [facility] [id number] Date(s): 11/19/14 - 11/19/14 [facility] [address] [place] [id number] Discharge Diagnosis: Essential hypertension Discharge Diagnosis: Pure [...] DAILY, # 90 tabs, 1 Refill(s), eRx: [facility] 2428, TAKE ONE TABLET BY MOUTH ONCE DAILY Start Date: 04/20/15 Status: Ordered cyclobenzaprine 10 mg oral tablet 10 mg 1 tabs, Oral, TID, as needed for spasm, # 90 tabs, 0 Refill(s), Pharmacy: [place] [id number], 1 tabs Oral TID,PRN:as needed for spasm Start Date: 01/26/15 Status: Ordered glipiZIDE 10 mg oral tablet, extended release See Instructions, TAKE ONE TABLET BY MOUTH ONCE DAILY, # 90 tabs, 1 Refill(s), eRx: [facility] 2428, TAKE ONE TABLET BY MOUTH ONCE DAILY Start Date: 01/05/15 Status: Ordered Glucometer strips (DME) DME Item One Touch Ultra Test Strips, Test daily DX 250.00, See Instructions, # 100 Each, 5 Refill(s), Pharmacy: [facility] #[id number], One Touch Ultra Test Strips, Test daily [...] DAY, # 90 tabs, 1 Refill(s), eRx: [facility] 2428, TAKE ONE TABLET BY MOUTH EVERY DAY Start Date: 02/09/15 Status: Ordered metFORMIN 500 mg oral tablet See Instructions, TAKE TWO TABLETS BY MOUTH TWICE DAILY, # 270 tabs, 1 Refill(s) , eRx: [facility] 2428, TAKE TWO TABLETS BY MOUTH TWICE DAILY Start Date: 05/18/15 Status: Ordered Metoprolol Tartrate 50 mg oral tablet See Instructions, TAKE ONE TABLET BY MOUTH ONCE DAILY, # 90 tabs, 1 Refill(s), eRx: [facility]28, TAKE ONE TABLET BY MOUTH ONCE DAILY Start Date: 02/18/15 Status: Ordered Mobic 7.5 mg oral tablet 7.5 mg 1 tabs, Oral, Daily, # 14 Each, 0 Refill(s), Pharmacy: [facility] 2428, 1 tabs Oral Daily Start Date: 01/26/15 Status: Ordered [place] 5 mg-325 mg oral tablet 1 tabs, Oral, q4hr, as needed for pain, max tylenol in 24 hrs is 3000mg, # 50 tabs, 0 Refill(s) Start Date: 01/26/15 Status: Ordered ONETOUCH ULTRA TEST STRIPS See Instructions, TEST ONE TO TWO TIMES A DAY, # 50 strip, 2 Refill(s), eRx: [facility] #[id number], TEST ONE TO TWO TIMES A DAY Start Date: 03/09/15 Status: Ordered oxybutynin 5 mg oral tablet See Instructions, TAKE ONE TABLET BY MOUTH TWICE DAILY, # 180 tabs, 1 Refill(s) , eRx: [facility], TAKE ONE TABLET BY [...] know. Ordered: Office Visit Level 4 Est 60985 Diabetes mellitus, type 2 A1c is down to 7.1. I encouraged him to continue to work hard on his diet continue current medications. Report card reviewed and provided. Follow-up in 3 months. Ordered: Office Visit Level 4 Est 01738 Disorder of brain Chronic stable no change in current treatment. Encouraged him to continue to stay active. Ordered: Office Visit Level 4 Est 10822 Essential hypertension Blood pressure is reasonably controlled. Continue current treatment without change. Recheck in 3 months. Report card reviewed. Ordered: Office Visit Level 4 Est 72107 Osteoarthritis Stable no change in current treatment. Ordered: Office Visit Level 4 Est 69692 Pure hypercholesterolemia Stable no change in current treatment. Fasting lab in 3 months. Ordered: Office Visit Level 4 Est 63164 Sebaceous cyst mid back Schedule appointment for removal.
--- OUTSIDE RECORDS SUMMARY | 2016-11-03 09:52 | XMS REPORT | Referral Summary ---
Author Author [facility] Organization [facility] Address Unknown Phone Unavailable Care Team Providers Care Dishroom Attendant Name Role Phone Vanessa Silverman Primary Care Physician [phone] Encounter [facility] [id number] Date(s): 08/20/15 - 08/20/15 [facility] [address] [place] [phone]- Discharge Diagnosis: Diabetes mellitus, type 2 Discharge Diagnosis: Fatigue Discharge Diagnosis: Disorder of brain (disorder) Discharge Diagnosis: Pure hypercholesterolemia Discharge Diagnosis: Major depressive disorder, single episode, unspecified Discharge Diagnosis: Essential hypertension Discharge Disposition: 01-Home or Self Care Attending Physician: Martinez Silverman MD Admitting Physician: Martinez Silverman MD Vital Signs Most recent to 1 oldest [Reference Range]: Temperature Tympanic 35.8 degC [36.6-38.1 degC] *LOW* (08/20/15 10:42 AM) Peripheral Pulse 80 bpm Rate [60-100 bpm] (08/20/15 10:42 AM) Respiratory Rate 18 br/min [14-20 br/min] (08/20/15 10:42 AM) Blood Pressure 156/98 mmHg [90-140/60-90 mmHg] *HI* (08/20/15 10:42 AM) Problem List Condition Effective Dates Status [...] ONCE DAILY, # 90 tabs, 1 Refill(s), Pharmacy: [facility], TAKE two TABLET BY MOUTH ONCE DAILY Start Date: 08/18/15 Status: Ordered cyclobenzaprine 10 mg oral tablet 10 mg 1 tabs, Oral, TID, as needed for spasm, # 90 tabs, 0 Refill(s), Pharmacy: [facility], 1 tabs Oral TID,PRN:as needed for spasm Start Date: 01/26/15 Status: Ordered glipiZIDE 10 mg oral tablet, extended release See Instructions, TAKE ONE TABLET BY MOUTH ONCE DAILY, # 90 tabs, 1 Refill(s), Pharmacy: [facility], TAKE ONE TABLET BY MOUTH ONCE DAILY Start Date: 08/18/15 Status: Ordered Glucometer strips (DME) DME Item One Touch Ultra Test Strips, Test daily DX 250.00, See Instructions, # 100 Each, 5 Refill(s), Pharmacy: [facility] #[id number], One Touch Ultra Test Strips, Test daily [...] EVERY DAY, # 90 tabs, 1 Refill(s), Pharmacy: [facility] Start Date: 08/18/15 Status: Ordered metFORMIN 500 mg oral tablet See Instructions, TAKE TWO TABLETS BY MOUTH TWICE DAILY, # 270 tabs, 1 Refill(s) , Pharmacy: [facility], TAKE TWO TABLETS BY MOUTH TWICE DAILY Start Date: 08/18/15 Status: Ordered Metoprolol Tartrate 50 mg oral tablet See Instructions, TAKE ONE TABLET BY MOUTH ONCE DAILY, # 90 tabs, 1 Refill(s), Pharmacy: [facility], TAKE ONE TABLET BY MOUTH ONCE DAILY Start Date: 08/18/15 Status: Ordered Mobic 7.5 mg oral tablet 7.5 mg 1 tabs, Oral, Daily, # 14 Each, 0 Refill(s), Pharmacy: [facility], 1 tabs Oral Daily Start Date: 01/26/15 Status: Ordered [place] 5 mg-325 mg oral tablet 1 tabs, Oral, q4hr, as needed for pain, max tylenol in 24 hrs is 3000mg, # 50 tabs, 0 Refill(s) Start Date: 01/26/15 Status: Ordered ONETOUCH ULTRA TEST STRIPS See Instructions, TEST ONE TO TWO TIMES A DAY, # 50 strip, 2 Refill(s), eRx: [facility] #[id number], TEST ONE TO TWO TIMES A DAY Start Date: 03/09/15 Status: Ordered oxybutynin 5 mg oral tablet See Instructions, TAKE ONE TABLET BY MOUTH TWICE DAILY, # 180 tabs, 1 Refill(s) , Pharmacy: [facility], TAKE ONE TABLET BY MOUTH TWICE DAILY Start Date: 08/18/15 Status: Ordered senna Oral, Daily, as needed for constipation, 0 Refill(s) Start Date: 08/18/14 Status: Ordered [place]adj[place] 5 mg oral tablet 5 mg 1 tabs, Oral, Daily, # 30 tabs, 0 Refill(s), samples given to patient (Rx) Start Date: 08/20/15 Status: Ordered Results Hematology Most recent to 1 oldest [Reference Range]: WBC [4.8-10.8 9.6 10*3/uL 10*3/uL] (08/20/15 11:30 AM) RBC [4.60-6.20] 4.53 *LOW* (08/20/15 11:30 AM) Hgb [14.0-18.0 14.2 gm/dL gm/dL] (08/20/15 11:30 AM) Hct [42.0-52.0 %] 40.6 % *LOW* (08/20/15 11:30 AM) MCV [82.0-99.0 fL] 89.6 fL (08/20/15 11:30 AM) MCH [27.0-32.0 pg] 31.3 pg (08/20/15 11:30 AM) MCHC [32.0-36.0 35.0 gm/dL gm/dL] (08/20/1530 AM) RDW [11.5-14.5 %] 13.4 % (08/20/15:30 AM) Platelet [150-400 187 10*3/uL 10*3/uL] (08/20/1530 AM) MPV [8.8-14.8 fL] 10.4 fL (08/20/1530 AM) Immature 0.2 % Granulocytes (08/20/1530 AM) [0.0-1.0 %] Neutrophils [51-75 49 % %] *LOW* (08/20/15 AM) Lymphocytes [20-46 39 % %] (08/20/1530 AM) Monocytes [4-11 %] 10 % (08/20/1530 AM) Eosinophils [0-4 %] 2 % (08/20/1530 AM) Basophils [0-2 %] 0 % (08/20/15 11:30 AM) Neutro Absolute 4.70 10*3 [1.90-7.00 10*3] (08/20/15 11:30 AM) Lymph Absolute 3.69 10*3 [0.80-3.30 10*3] *HI* (08/20/15 11:30 AM) [place] Absolute 0.93 10*3 [0.30-1.00 10*3] (08/20/15 11:30 AM) Eos Absolute 0.21 10*3 [0.00-0.50 10*3] (08/20/15 11:30 AM) Baso Absolute 0.02 10*3 [0.00-0.20 10*3] (08/20/15 11:30 AM) Chemistry Most recent to 1 oldest [Reference Range]: TSH with Reflex Free 1.04 T4 [0.35-4.94] (08/20/15 11:30 AM) Immunizations Vaccine Date Refusal Reason influenza virus [...] Visit Note Author: Martinez Silverman MD Date: 08/20/15 Assessment/Plan Diabetes mellitus, type 2 A1c is running high at 8.7 and glucometers are high as well. I recommended adding tradgenta 5 mg dailyWe had a fairly elan discussion about thelikelihood of him needing to be on insulin sometime in the near future. I gave him 4 weeks of samples will seehow that's working. Disorder of brain (disorder) He has chronic cerebellar degeneration. This seems to be slowlyprogressing. We talked about trying to stay active. Trying to sit uprightand and chin upwhen swallowing. No further interventions or treatments at this time. Ordered: Office Visit Level 4 Est 12250 Essential hypertension Blood pressureis on the high side today. Continue to monitorhis been running fairly normally at home recheck in 3 months. Ordered: Office Visit Level 4 Est 05106 Fatigue I think is a good chance he has some sleep apnea. I've recommended a sleep evaluation. We will check a CBC and TSH today as well. Ordered: CBC w/ Differential Office Visit Level 4 Est 47833 TSH with Reflex Free T4 Major depressive disorder, single episode, unspecified Continue citalopram at its current dosage. Ordered: Office Visit Level 4 Est 37115 Pure hypercholesterolemia Overall stable no change in current treatment. Orders: linagliptin, 5 mg 1 tabs, Oral, Daily, # 30 tabs, 0 Refill(s), samples given to patient (Rx)
--- OUTSIDE RECORDS SUMMARY | 2016-11-03 09:52 | XMS REPORT | Referral Summary ---
Author Author [facility] Organization [facility] Address Unknown Phone Unavailable Care Team Providers Care Merchandise Displayer Name Role Phone Vanessa Silverman Primary Care Physician [phone] Encounter Date(s): 11/16/15 - 11/16/15 [facility] [address] [place] [address] Discharge Diagnosis: Disorder of brain (disorder) Discharge Diagnosis: Major depressive disorder, single episode, unspecified Discharge Diagnosis: Essential hypertension Discharge Diagnosis: Cerebellar dysfunction Discharge Diagnosis: Diabetes mellitus, type 2 Discharge Diagnosis: Pure hypercholesterolemia Discharge Disposition: 01-Home or Self Care Attending Physician: Martinez Silverman MD Admitting Physician: Martinez Silverman MD Vital Signs Most recent to 1 oldest [Reference Range]: Temperature Tympanic 36.0 degC [36.6-38.1 degC] *LOW* (11/16/15 10:30 AM) Peripheral Pulse 80 bpm Rate [60-100 bpm] (11/16/15 10:30 AM) Respiratory Rate 20 br/min [14-20 br/min] (11/16/15 10:30 AM) Blood Pressure 124/70 mmHg [90-140/60-90 mmHg] (11/16/15 10:30 AM) Problem List Condition Effective Dates Status [...] Daily, # 90 tabs, 4 Refill(s), Pharmacy: [facility], 1 tabs Oral Daily Start Date: 09/01/15 Status: Ordered cyclobenzaprine 10 mg oral tablet 10 mg 1 tabs, Oral, TID, as needed for spasm, # 90 tabs, 0 Refill(s), Pharmacy: [facility] 2428, 1 tabs Oral TID,PRN:as needed for spasm Start Date: 01/26/15 Status: Ordered glipiZIDE 10 mg oral tablet, extended release 10 mg 1 tabs, Oral, Daily, [id number], # 90 tabs, 4 Refill(s), Pharmacy: [facility], 1 tabs Oral Daily,Instr:[id number] Start Date: 09/01/15 Status: Ordered Glucometer strips (DME) DME Item One Touch Ultra Test Strips, Test daily DX 250.00, See Instructions, # 100 Each, 5 Refill(s), Pharmacy: [facility] #[id number], One Touch Ultra Test Strips, Test daily [...] mg oral tablet 1 tabs, Oral, Daily, [id number], # 90 tabs, 4 Refill(s), Pharmacy: [facility] Start Date: 09/01/15 Status: Ordered metFORMIN 500 mg oral tablet 1,000 mg 2 tabs, Oral, BID, [id number], # 360 tabs, 4 Refill(s), Pharmacy: [facility], 2 tabs Oral BID,Instr:[id number] Start Date: 09/01/15 Status: Ordered Metoprolol Tartrate 50 mg oral tablet 50 mg 1 tabs, Oral, Daily, [id number], # 90 tabs, 4 Refill(s), Pharmacy: [facility], 1 tabs Oral Daily,Instr:[id number] Start Date: 09/01/15 Status: Ordered Mobic 7.5 mg oral tablet 7.5 mg 1 tabs, Oral, Daily, # 14 Each, 0 Refill(s), Pharmacy: [facility], 1 tabs Oral Daily Start Date: 01/26/15 Status: Ordered [place] 5 mg-325 mg oral tablet 1 tabs, Oral, q4hr, as needed for pain, max tylenol in 24 hrs is 3000mg, # 50 tabs, 0 Refill(s) Start Date: 01/26/15 Status: Ordered ONETOUCH ULTRA TEST STRIPS See Instructions, TEST ONE TO TWO TIMES A DAY, # 50 strip, 2 Refill(s), eRx: [facility] #[id number], TEST ONE TO TWO TIMES A DAY Start Date: 03/09/15 Status: Ordered oxybutynin 5 mg oral tablet 5 mg 1 tabs, Oral, BID, [id number], # 180 tabs, 4 Refill(s), Pharmacy: [facility], 1 tabs Oral BID,Instr:[id number] Start Date: 09/01/15 Status: Ordered senna Oral, [...] Visit Note Author: Martinez Silverman MD Date: 11/16/15 Assessment/Plan 1.Diabetes mellitus, type 2, Type 2 diabetes mellitus without complications A1c is down to 7.5. I encouraged himto continue to work on weight loss anddietary control. Continue current medications without change. Follow- up in 3 months. Report card reviewed and provided. Ordered: Office Visit Level 4 Est 35350 2.Disorder of brain (disorder), Progressive vascular leukoencephalopathy Chronic relatively stable no change in treatment recommended. Ordered: Office Visit Level 4 Est 41932 3.Essential hypertension, Essential (primary) hypertension Blood pressure appears to be adequately controlled. Medications and treatments reviewed. Recent laboratory studies reviewed. Report card reviewed and provided. Follow-up in 3 months. Ordered: Office Visit Level 4 Est 04835 4.Pure hypercholesterolemia, Pure hypercholesterolemia Chronic stable no change in current treatment. Ordered: Office Visit Level 4 Est 13044 5.Cerebellar dysfunction, Encephalopathy, unspecified See aboveundernumber 2 Ordered: Office Visit Level 4 Est 26461 6.Major depressive disorder, single episode, unspecified Chronic stable overall appears to be doing well. No change in current treatment recommended.
--- OUTSIDE RECORDS SUMMARY | 2016-11-03 09:52 | XMS REPORT | Referral Summary ---
Author Author [facility] Organization [facility] Address Unknown Phone Unavailable Care Team Providers Care Registrar Museum Name Role Phone Vanessa Silverman Primary Care Physician [phone] Encounter [facility] [id number] Date(s): 05/21/15 - 05/21/15 [facility] [address] [place] [id number] Discharge Diagnosis: Pure hypercholesterolemia Discharge Diagnosis: Essential hypertension Discharge Diagnosis: Disorder of brain Discharge Diagnosis: Diabetes mellitus, type 2 Discharge Diagnosis: Depressive disorder Discharge Disposition: 01-Home or Self Care Attending Physician: Martinez Silverman MD Admitting Physician: Martinez Silverman MD Vital Signs Most recent to 1 oldest [Reference Range]: Temperature Tympanic 37.0 degC [36.6-38.1 degC] (05/21/15 11:07 AM) Peripheral Pulse 92 bpm Rate [60-100 bpm] (05/21/15 11:07 AM) Respiratory Rate 20 br/min [14-20 br/min] (05/21/15 11:07 AM) Blood Pressure 120/68 mmHg [90-140/60-90 mmHg] (05/21/15 11:07 AM) Problem List Condition Effective Dates Status [...] DAILY, # 90 tabs, 1 Refill(s), eRx: [facility] [id number], TAKE ONE TABLET BY MOUTH ONCE DAILY Start Date: 04/20/15 Status: Ordered cyclobenzaprine 10 mg oral tablet 10 mg 1 tabs, Oral, TID, as needed for spasm, # 90 tabs, 0 Refill(s), Pharmacy: [place] [facility] [address], 1 tabs Oral TID,PRN:as needed for spasm Start Date: 01/26/15 Status: Ordered Debrox 6.5% otic solution 5 drops, Ear-Both, BID, X 4 days, # 15 mL, 0 Refill(s), Pharmacy: [facility] [id number] Start Date: 05/21/15 Stop Date: 05/25/15 Status: Ordered Debrox 6.5% otic solution 5 drops, Ear-Both, BID, X 4 days, # 15 mL, 0 Refill(s), Pharmacy: [place] [facility] [id number] Start Date: 05/21/15 Stop Date: 05/25/15 Status: Ordered glipiZIDE 10 mg oral tablet, extended release See Instructions, TAKE ONE TABLET BY MOUTH ONCE DAILY, # 90 tabs, 1 Refill(s), eRx: [place] [facility] [address], TAKE ONE TABLET BY MOUTH ONCE DAILY Start Date: 01/05/15 Status: Ordered Glucometer strips (DME) DME Item One Touch Ultra Test Strips, Test daily DX 250.00, See Instructions, # 100 Each, 5 Refill(s), Pharmacy: [facility] #[id number], One Touch Ultra Test Strips, Test daily [...] DAY, # 90 tabs, 1 Refill(s), eRx: [facility], TAKE ONE TABLET BY MOUTH EVERY DAY Start Date: 02/09/15 Status: Ordered metFORMIN 500 mg oral tablet See Instructions, TAKE TWO TABLETS BY MOUTH TWICE DAILY, # 270 tabs, 1 Refill(s) , [facility]Rx: [facility], TAKE TWO TABLETS BY MOUTH TWICE DAILY Start Date: 05/18/15 Status: Ordered Metoprolol Tartrate 50 mg oral tablet See Instructions, TAKE ONE TABLET BY MOUTH ONCE DAILY, # 90 tabs, 1 Refill(s), eRx: [facility], TAKE ONE TABLET BY MOUTH ONCE DAILY Start Date: 02/18/15 Status: Ordered Mobic 7.5 mg oral tablet 7.5 mg 1 tabs, Oral, Daily, # 14 Each, 0 Refill(s), Pharmacy: [place] [address], 1 tabs Oral Daily Start Date: 01/26/15 Status: Ordered [place] 5 mg-325 mg oral tablet 1 tabs, Oral, q4hr, as needed for pain, max tylenol in 24 hrs is 3000mg, # 50 tabs, 0 Refill(s) Start Date: 01/26/15 Status: Ordered ONETOUCH ULTRA TEST STRIPS See Instructions, TEST ONE TO TWO TIMES A DAY, # 50 strip, 2 Refill(s), eRx: [facility] #[id number], TEST ONE TO TWO TIMES A DAY Start Date: 03/09/15 Status: Ordered oxybutynin 5 mg oral tablet See Instructions, TAKE ONE TABLET BY MOUTH TWICE DAILY, # 180 tabs, 1 Refill(s) , eRx: [facility], TAKE ONE TABLET BY MOUTH [...] Visit Note Author: Martinez Silverman MD Date: 05/21/15 Assessment/Plan Depressive disorder, Major depressive disorder, single episode, unspecified I recommended increasing citalopram to 40 mg daily. He'll keep me posted on how he's doing over the next couple of weeks. Ordered: Office Visit Level 4 Est 45284 Diabetes mellitus, type 2 I emphasized the importance of dietary compliance. We talked about adding medication but he wants to work on diet over the next few weeks and see if we don't see low sugars improved. He'll keep me posted on how they're doing. Recheck in 3 months. Disorder of brain, Disorder of brain, unspecified Chronic cerebellar dysfunction is unchangedno change in treatment plan at this time. Ordered: Office Visit Level 4 Est 15632 Essential (primary) hypertension, Essential hypertension Blood pressures well-controlled. Medications reviewed no changes recommended. Recent laboratory studies reviewed. Report card reviewed and provided. Follow-up in 3 months. Ordered: Office Visit Level 4 Est 09900 Pure hypercholesterolemia, Pure hypercholesterolemia Chronic stable. His tells me that they discontinued his simvastatin 5-6 months ago. His most recent lipid studies in February looked fine. No change in treatment at this time. We'll recheck in 3 months. Ordered: Office Visit Level 4 Est 31145 Orders: citalopram, See Instructions, TAKE two TABLET BY MOUTH ONCE DAILY, # 90 tabs, 1 Refill(s), eRx: [facility], TAKE ONE TABLET BY MOUTH ONCE DAILY
--- OUTSIDE RECORDS SUMMARY | 2016-11-03 09:52 | XMS REPORT | Referral Summary ---
Author Author [facility] Organization [facility] Address Unknown Phone Unavailable Care Team Providers Care Operations Officer Afloat Name Role Phone Vanessa Silverman Primary Care Physician [phone] Encounter [facility] Date(s): 07/21/16 - 07/21/16 [facility] [address] [place] [phone] Discharge Diagnosis: Right foot pain Discharge Diagnosis: Atypical mole Discharge Disposition: 01-Home or Self Care Attending Physician: Martinez Silverman MD Admitting Physician: Martinez Silvemran MD Vital Signs Most recent to 1 oldest [Reference Range]: Temperature Tympanic 36.6 degC [36.6-38.1 degC] (07/21/16 11:14 AM) Peripheral Pulse 68 bpm Rate [60-100 bpm] (07/21/16 11:14 AM) Respiratory Rate 20 br/min [14-20 br/min] (07/21/16 11:14 AM) Blood Pressure 130/66 mmHg [90-140/60-90 mmHg] (07/21/16 11:14 AM) Problem List Condition Effective Dates Status [...] Daily, # 90 tabs, 4 Refill(s), Pharmacy: [facility], 1 tabs Oral Daily Start Date: 09/01/15 Status: Ordered cyclobenzaprine 10 mg oral tablet 10 mg 1 tabs, Oral, TID, as needed for spasm, # 90 tabs, 0 Refill(s), Pharmacy: [facility], 1 tabs Oral TID,PRN:as needed for spasm Start Date: 01/26/15 Status: Ordered glipiZIDE 10 mg oral tablet, extended release 10 mg 1 tabs, Oral, Daily, [id number], # 90 tabs, 4 Refill(s), Pharmacy: [facility], 1 tabs Oral Daily,Instr:[id number] Start Date: 09/01/15 Status: Ordered Glucometer Lancets (DME) DME Item LANCETS. PT. USES ONE TOUCH ULTRA MACHINE DX. E11.9 CHECK B/S BID , See Instructions, # 1 boxes, 3 Refill(s), Pharmacy: [facility] #[id number], LANCETS. PT. USES ONE TOUCH ULTRA MACHINE DX. E11.9 CHECK B/S BID, Supply Start Date: 02/24/16 Status: Ordered Glucometer strips (DME) DME Item One Touch Ultra Test Strips, Test 2 times daily DX E11.9, See Instructions, # 100 Each, 5 Refill(s), Pharmacy: [facility] #[id number], One Touch Ultra Test Strips, Test 2 [...] mg oral tablet 1 tabs, Oral, Daily, [id number], # 90 tabs, 4 Refill(s), Pharmacy: [facility] Start Date: 09/01/15 Status: Ordered metFORMIN 500 mg oral tablet 1,000 mg 2 tabs, Oral, BID, [id number], # 360 tabs, 4 Refill(s), Pharmacy: [facility], 2 tabs Oral BID,Instr:[id number] Start Date: 09/01/15 Status: Ordered Metoprolol Tartrate 50 mg oral tablet 50 mg 1 tabs, Oral, Daily, [id number], # 90 tabs, 4 Refill(s), Pharmacy: [facility], 1 tabs Oral Daily,Instr:[id number] Start Date: 09/01/15 Status: Ordered Mobic 7.5 mg oral tablet 7.5 mg 1 tabs, Oral, Daily, # 14 Each, 0 Refill(s), Pharmacy: [facility], 1 tabs Oral Daily Start Date: 01/26/15 Status: Ordered [place] 5 mg-325 mg oral tablet 1 tabs, Oral, q4hr, as needed for pain, max tylenol in 24 hrs is 3000mg, # 50 tabs, 0 Refill(s) Start Date: 01/26/15 Status: Ordered ONETOUCH ULTRA TEST STRIPS See Instructions, TEST ONE TO TWO TIMES A DAY, # 50 strip, 2 Refill(s), eRx: [facility] #[id number], TEST ONE TO TWO TIMES A DAY Start Date: 03/09/15 Status: Ordered oxybutynin 5 mg oral tablet 5 mg 1 tabs, Oral, BID, [id number], # 180 tabs, 4 Refill(s), Pharmacy: [facility], 1 tabs Oral BID,Instr:[id number] Start Date: 09/01/15 Status: Ordered senna Oral, [...] Visit Note Author: Martinez Silverman MD Date: 07/21/16 Assessment/Plan 1.Right foot pain No further treatment needed his pain is resolved. Initially thought there is a fracture but x-ray today and previously actually don't show any fracturethat I can appreciatecurrently. She has further problems she'll let us know. 2.Atypical mole I think this mole needs to be removed willschedule a time for that.
--- OUTSIDE RECORDS SUMMARY | 2016-11-03 09:52 | XMS REPORT | Referral Summary ---
Author Author [facility] Organization [facility] Address Unknown Phone Unavailable Care Team Providers Care Warp Placer Name Role Phone Vanessa Silverman Primary Care Physician [phone] Encounter [facility] Date(s): 01/15/15 - 01/15/15 [facility] [address] [place] [phone] Discharge Diagnosis: Cerebellar dysfunction Discharge Diagnosis: Depressive disorder Discharge Diagnosis: Constipation Discharge Disposition: 01-Home or Self Care Attending Physician: Martinez Silverman MD Referring Physician: Martinez Silverman MD Vital Signs Most recent to 1 oldest [Reference Range]: Temperature Tympanic 36.5 degC [36.6-38.1 degC] *LOW* (01/15/15 9:31 AM) Peripheral Pulse 80 bpm Rate [60-100 bpm] (01/15/15 9:31 AM) Respiratory Rate 18 br/min [14-20 br/min] (01/15/15 9:31 AM) Blood Pressure 124/70 mmHg [90-140/60-90 mmHg] (01/15/15 9:31 AM) Problem List Condition Effective Dates Status [...] DAILY, # 90 tabs, 1 Refill(s), eRx: [facility] 2428, TAKE ONE TABLET BY MOUTH ONCE DAILY Start Date: 04/20/15 Status: Ordered cyclobenzaprine 10 mg oral tablet 10 mg 1 tabs, Oral, TID, as needed for spasm, # 90 tabs, 0 Refill(s), Pharmacy: [facility] [address], 1 tabs Oral TID,PRN:as needed for spasm Start Date: 01/26/15 Status: Ordered glipiZIDE 10 mg oral tablet, extended release See Instructions, TAKE ONE TABLET BY MOUTH ONCE DAILY, # 90 tabs, 1 Refill(s), eRx: [place] [address], TAKE ONE TABLET BY MOUTH ONCE DAILY Start Date: 07/20/15 Status: Ordered Glucometer strips (DME) DME Item One Touch Ultra Test Strips, Test daily DX 250.00, See Instructions, # 100 Each, 5 Refill(s), Pharmacy: [facility] #[id number], One Touch Ultra Test Strips, Test daily [...] DAY, # 90 tabs, 1 Refill(s), eRx: [place] [address], TAKE ONE TABLET BY MOUTH EVERY DAY Start Date: 02/09/15 Status: Ordered metFORMIN 500 mg oral tablet See Instructions, TAKE TWO TABLETS BY MOUTH TWICE DAILY, # 270 tabs, 1 Refill(s) , eRx: [facility] 2428, TAKE TWO TABLETS BY MOUTH TWICE DAILY Start Date: 05/18/15 Status: Ordered Metoprolol Tartrate 50 mg oral tablet See Instructions, TAKE ONE TABLET BY MOUTH ONCE DAILY, # 90 tabs, 1 Refill(s), eRx: [facility] [place] [address], TAKE ONE TABLET BY MOUTH ONCE DAILY Start Date: 02/18/15 Status: Ordered Mobic 7.5 mg oral tablet 7.5 mg 1 tabs, Oral, Daily, # 14 Each, 0 Refill(s), Pharmacy: [facility], 1 tabs Oral Daily Start Date: 01/26/15 Status: Ordered [place] 5 mg-325 mg oral tablet 1 tabs, Oral, q4hr, as needed for pain, max tylenol in 24 hrs is 3000mg, # 50 tabs, 0 Refill(s) Start Date: 01/26/15 Status: Ordered ONETOUCH ULTRA TEST STRIPS See Instructions, TEST ONE TO TWO TIMES A DAY, # 50 strip, 2 Refill(s), eRx: [facility] #[id number], TEST ONE TO TWO TIMES A DAY Start Date: 03/09/15 Status: Ordered oxybutynin 5 mg oral tablet See Instructions, TAKE ONE TABLET BY MOUTH TWICE DAILY, # 180 tabs, 1 Refill(s) , eRx: [facility]28, TAKE ONE TABLET BY [...] Visit Note Author: Martinez Silverman MD Date: 01/15/15 Assessment/Plan Cerebellar dysfunction Chronic progressive. I think his incoordination and speech and swallowing troubles are related to this. For the time being no further intervention. We talked about seeing a speech therapist but they will hold off on that for now. Ordered: Office Visit Level 3 Est 38854 Constipation Increase senna to 2 tablets twice a day. Add MiraLAX if needed. Encouraged increased fluid specifically water intake. Ordered: Office Visit Level 3 Est 76726 Depressive disorder Increase citalopram to 40 mg daily. Ordered: Office Visit Level 3 Est 52029 Orders: citalopram, See Instructions, TAKE TWO TABLET BY MOUTH EVERY DAY, # 90 tabs, 1 Refill(s), eRx: [facility], TAKE ONE TABLET BY MOUTH EVERY DAY
--- NOTE | 2016-11-03 10:41 | PNPDOC ---
Progress Note Date 11/03/16 Upon eval in pre-op patient found to be in atrial fibrilation with rapid rate and occasional PVC's. He denies chest pain, SOA, arm and neck pain. He has experienced "like my lungs collapse" when he takes a deep breath, off and on the last 3-4 days. He does not have a known cardiac history, has never seen a acid leveler. Dr. Silverman is his pcp. IN light of these new findings, cardiology, Dr. Carlson, is consulted. Meeta Guardado APRN is here to see the patient. ADDENDUM: After evaluation and discussion with family, it is decided to cancel today's procedure, and admit as outpatient under Dr. Fish as admitting and attending. Anticipate proceeding with original planned dermatologic procedures when cleared from cardiology standpoint, in the futures. KELY YA APRN November 03, 2016 10:41
[2016-11-03 11:12] LABS: ANION GAP 13 MEQ/L (5-15); BUN/CREATININE RATIO 25 RATIO (6-26); CALCIUM 10.4 MG/DL (8.4-10.2); CHLORIDE 108 MEQ/L (98-107); CO2 - CARBON DIOXIDE 24 MEQ/L (22-30); GLOMERULAR FILTRATION RATE 72; GLUCOSE 155 MG/DL (75-110); POTASSIUM 4.2 MEQ/L (3.6-5); SODIUM 145 MEQ/L (134-144)
[2016-11-03] MEDS ORDERED: ENOXAPARIN 120 MG/0.8 ML INJECTION SQ SCH (11:45)
[2016-11-03] MEDS ORDERED: NORMAL SALINE 1,000 ML IV ONE (11:45)
--- NOTE | 2016-11-03 11:45 | NUR ---
Received from Pre Op after surgery cancelled in afib 110- 120s. BP stable.
--- OUTSIDE RECORDS SUMMARY | 2016-11-03 12:07 | XMS REPORT | Continuity of Care Document ---
Author Author [facility] Organization [facility] Address Unknown Phone Unavailable Allergies Active Description Code Type Severity Reaction Onset Reported/Identified Relationship to Patient Clinical Status Yes morphine NKMA Moderate Hallucinations 10/09/2013 Medications Problems Procedures Results Encounters ACCT No. Visit Date/Time Discharge Status Pt. Type Provider Facility Loc./Unit Complaint [id number] 08/26/2013 12:39:00 08/26/2013 23 :59:59 CLS Outpatient [id number] 08/20/2013 14:50:00 08/20/2013 23 :59:59 CLS Outpatient [id number] 08/20/2013 10:07:00 08/20/2013 23 :59:59 CLS Outpatient [id number] 08/12/2013 11:32:00 08/12/2013 23 :59:59 CLS Outpatient [id number] 08/01/2013 13:53:00 08/01/2013 23 :59:59 CLS Outpatient [id number] 06/18/2013 12:56:00 06/18/2013 23 :59:59 CLS Outpatient
[2016-11-03] MEDS ORDERED: CEFAZOLIN 1 GRAM INJECTION IV ONE (12:15)
[2016-11-03 12:29] LABS: MAGNESIUM 1.8 MG/DL (1.6-2.3)
--- NOTE | 2016-11-03 12:41 | HPPDOC ---
HPI - Adult Date DATE: 11/03/16 TIME: 12:12 General Date of Admission Date of Admission: November 03, 2016 at 11:00 History of Present Illness Toney is a 81 year old male patient of Dr. 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 Dr. Silverman is his PCP. I examined him in the pre-op area where he denies chest pain, SOA, arm and neck pain. He has experienced a feeling"like my lungs collapse" when he takes a deep breath, off and on since last Monday. His reports that the patient has been more fatigued and sleeping more than previously. He is to be transferred to CCU for monitoring and COURTNEY, possible DCCV later today. I Past Medical History Past Medical History Metabolic: diabetes, hypercholesterolemia, hypertension Neurological: other (cerebellar dysfunction), seizures Musculoskeletal: osteoarthritis Psychological: depression Surgical History General: gallbladder Joint: other, shoulder Current Medications Home Meds Reported Medications Calcium Carbonate/Vitamin D3 (Caltrate 600 + D Tablet) 1 Each Tablet, 1 TAB PO DAILY 11/02/16 Sennosides (Senna) 8.6 Mg Tablet, 8.6 MG PO DAILY Y for CONSTIPATION, TAB 11/02/16 Latanoprost (Latanoprost) 2.5 Ml Drops, 1 DROP LEFT EYE HS, BOTTLE 11/02/16 Hydrocodone/Acetaminophen ([place] 5-325 Tablet) 5-325 Tablet, 1-2 TAB PO Q4HPRN, TAB 11/02/16 Citalopram Hydrobromide (Citalopram HBr) 40 Mg Tablet, 1 TAB PO DAILY, TAB 11/02/16 Multivits,Ca,Min/Iron/Fa/Lycop (Centrum Ultra Men's Tablet) 1 Each Tablet, 1 EACH PO HS 07/21/12 Oxybutynin Chloride (Oxybutynin Chloride) 5 Mg Tablet, 10 MG PO HS 07/21/12 Oxybutynin Chloride (Oxybutynin Chloride) 5 Mg Tablet, 5 MG PO AM 07/21/12 Losartan/Hydrochlorothiazide (Losartan-Hctz 100-25 Mg Tab) 1 Each Tablet, 1 EACH PO DAILY 07/21/12 Metformin Hcl (Metformin Hcl) 500 Mg Tablet, 1000 MG PO BID 10/15/08 Glipizide (Glipizide) 10 Mg Tablet, 10 MG PO DAILY 10/15/08 Allergies: Coded Allergies: morphine (Verified Adverse Reaction, Unknown, HALLUCINATIONS, 11/02/16) Family History FOUND: cancer (mother and father), other (heart disease mother) Vaccines 04/23 Social History Smoking Status: Former smoker Patient last used chewing toba: November 03, 2016 Marital Status: Sexuality: female partner Advance Directives: Yes DPOA for Healthcare Only (Kp ) Review of Systems Constitutional: REPORTS: fatigue, DENIES: chills, dizziness, fever, weakness Eyes Vision: DENIES: vision changes ENMT Hearing: DENIES: tinnitus Balance: DENIES: vertigo Sinuses: NOT FOUND: rhinorrhea Mouth/Throat: DENIES: sore throat Cardiovascular DENIES: chest pain, dyspnea on exertion, murmur, orthopnea, paroxysmal nocturnal dysp Rhythm/Rate: DENIES: irregular beat, palpitations, tachycardia Vascular: DENIES: pedal edema Pulmonary Respiratory: dyspnea (at times), DENIES: cough, sputum GI Upper Abdomen: DENIES: nausea, vomiting Lower Abdomen: DENIES: blood in stool, diarrhea General: DENIES: dysuria Integumentary Skin: see HPI, DENIES: rash Neurological General: DENIES: headache, numbness, seizures, syncope, weakness All Other Systems All Other Systems: Reviewed (remainder of 10-point ROS Neg.) Physical Exam General General Nourishment: well nourished, well developed, obese, apparent age Vital Signs Vital Signs Date Time Temp Pulse Resp B/P Pulse Ox O2 Delivery O2 Flow Rate FiO2 11/03/16 10:00 97.4 90 16 128/74 94 Room Air Height (Feet): 5 Height (Inches): 10.00 Telemetry Rhythm: Atrial Fibrillation ENMT Brief: FOUND: mucosa moist Neck Brief: NOT FOUND: JVD, carotid bruits Respiratory Brief: FOUND: clear all mcdermott, equal bilaterally, NOT FOUND: rales , wheezes Cardiovascular (brief) Cardiac Brief: NOT FOUND: click, gallop, murmur, pedal edema, regular rate, regular rhythm Abdomen (brief) Abdominal Brief: FOUND: BS normo active x4, soft, NOT FOUND: tender Integumentary (brief) Integumentary Brief: FOUND: dry, pink, warm Neurologic RN Documented GCS Eye Opening: Verbal: Motor: Total: Psychiatric (brief) FOUND: alert, normal affect, oriented Laboratory Laboratory Tests Test 11/03/16 10:22 11/03/16 11:19 11/03/16 11:43 Turbidity < 20 Sodium Level 145MEQ/L Potassium Level 4.2MEQ/L Chloride Level 108MEQ/L Carbon Dioxide Level 24MEQ/L Anion Gap 13MEQ/L Blood Urea Nitrogen 25.0MG/DL Creatinine 1.0MG/DL Glomerular Filtration Rate Calc 72 BUN/Creatinine Ratio 25RATIO Glucose Level 155MG/DL Calculated Osmolality 286MOSM/KG Calcium Level 10.4MG/DL Icterus Index < 2 Chemistry Specimen Hemolysis 17 21 Glucometer 140mg/dL Magnesium Level 1.8MG/DL Troponin I < 0.012ng/ml Thyroid Stimulating Hormone (TSH) 0.95MIU/L Laboratory Tests Test 11/03/16 10:22 11/03/16 11:19 11/03/16 11:43 Turbidity < 20 Sodium Level 145MEQ/L Potassium Level 4.2MEQ/L Chloride Level 108MEQ/L Carbon Dioxide Level 24MEQ/L Anion Gap 13MEQ/L Blood Urea Nitrogen 25.0MG/DL Creatinine 1.0MG/DL Glomerular Filtration Rate Calc 72 BUN/Creatinine Ratio 25RATIO Glucose Level 155MG/DL Calculated Osmolality 286MOSM/KG Calcium Level 10.4MG/DL Icterus Index < 2 Chemistry Specimen Hemolysis 17 Glucometer 140mg/dL Radiology DATE OF EXAM: 11/03/16 ORDERING DOCTOR: ATIYA GALAVIZ APRN TYPE OF EXAM: CHEST 1 VIEW REASON FOR EXAM: new afib Indication: ITS.REASON: new afib PROCEDURE: CHEST 1 VIEW: Encounter: Initial Comparison: October 17, 2008 Findings: The lungs are stable in appearance without new focal airspace consolidation. There is no pleural effusion or pneumothorax. The heart size, pulmonary vascularity and mediastinal contours are unchanged. Left shoulder replacement. IMPRESSION: Stable appearance of the chest without acute cardiopulmonary disease. Assessment & Plan Problems: (1) New onset atrial fibrillation Status: Acute Assessment & Plan: Keep NPO for COURTNEY, possible DCCV later today. Start Lovenox for anticoagulation will change to a po agent in am for stroke prevention. (2) Essential (primary) hypertension Status: Chronic Assessment & Plan: Continue Losartan/ HCTZ (3) Mixed hyperlipidemia Status: Chronic (4) Diabetes mellitus Status: Chronic Qualifiers: Diabetes mellitus type: type 2 Diabetes mellitus complication status: without complication Diabetes mellitus tank terminal gauger insulin use: without tank terminal gauger use Qualified Codes: E11.9 - Type 2 diabetes mellitus without complications Assessment & Plan: Continue Metformin, and Glipizide. Monitor BGMs Plan/Intensity of Service Keep NPO for COURTNEY, possible DCCV later today. Started on Lovenox for anticoagulation, will change to Eliquis 5mg BID beginning in the am for stroke prevention. Following successful cardioversion start Amiodarone bolus and drip, continue to monitor telemetry, repeat EKG in the am. DVT Prophylaxis: Lovenox Code Status Full Code Hospital Course Summary Disclaimer The hospital course summary below is not to be considered part of the above Progress Note. ATIYA GALAVIZ APRN November 03, 2016 12:23
--- NOTE | 2016-11-03 13:21 | DI ---
Indication: ITS.REASON: new afib PROCEDURE: CHEST 1 VIEW: Encounter: Initial Comparison: October 17, 2008 Findings: The lungs are stable in appearance without new focal airspace consolidation. There is no pleural effusion or pneumothorax. The heart size, pulmonary vascularity and mediastinal contours are unchanged. Left shoulder replacement. IMPRESSION: Stable appearance of the chest without acute cardiopulmonary disease. .
[2016-11-03 13:25] LABS: THYROID STIM HORMONE-TSH 0.95 MIU/L (0.47-4.68)
[2016-11-03] MEDS ORDERED: SALINE FLUSH 10ml SYRINGE ONE (16:00)
--- NOTE | 2016-11-03 16:00 | NUR ---
Cardioverted at 360j after COURTNEY and versed and fentanyl given IV. Converted to SR with PVCs.
[2016-11-03] MEDS ORDERED: ACETAMINOPHEN 325 MG TABLET PO PRN (16:15)
[2016-11-03] MEDS ORDERED: AMIODARONE 150 MG in NORMAL SALINE 100 ML IV ONE (16:15)
[2016-11-03] MEDS ORDERED: MAG-AL + SIM LIQUID 30 ML UDC PO PRN (16:15)
[2016-11-03] MEDS ORDERED: BISACODYL 5 MG E.C. TABLET PO PRN (16:15)
[2016-11-03] MEDS ORDERED: NITROGLYCERIN 0.4 MG SUBLINGUAL TABLET SL PRN (16:15)
[2016-11-03] MEDS ORDERED: BISACODYL 10 MG SUPPOSITORY RECTALLY PRN (16:15)
[2016-11-03] MEDS ORDERED: LORAZEPAM 1 MG TABLET PO PRN (16:15)
[2016-11-03] MEDS ORDERED: MILK OF MAGNESIA 30 ML SUSP PO PRN (16:15)
[2016-11-03] MEDS ORDERED: HYDROCODONE/APAP 5 mg/325 mg TABLET PO PRN (16:15)
[2016-11-03] MEDS ORDERED: METOCLOPRAMIDE 10mg/2ml INJECTION IV PRN (16:15)
[2016-11-03] MEDS ORDERED: SENNOSIDES 8.6 MG TABLET PO PRN (16:15)
[2016-11-03] MEDS ORDERED: PROMETHAZINE 25 MG INJECTION IV PRN (16:15)
[2016-11-03] MEDS ORDERED: LORAZEPAM 2 MG/ML INJECTION IV PRN (16:15)
[2016-11-03] MEDS ORDERED: MIDAZOLAM 2mg/2ml INJECTION IV ONE (16:58)
[2016-11-03] MEDS ORDERED: FENTANYL 100mcg/2ml INJECTION IV ONE (16:58)
[2016-11-03] MEDS ORDERED: AMIODARONE 900 MG in NORMAL SALINE 500 ML IV SCH (17:00)
--- NOTE | 2016-11-03 17:45 | NUR ---
Eats supper well at this time.
[2016-11-03] MEDS: METFORMIN 500 MG TAB - PT OWN PO SCH (19:21)
--- NOTE | 2016-11-03 21:12 | TEEF ---
DATE OF PROCEDURE 11/03/2016 REFERRING PHYSICIAN Martinez Silverman MD INDICATIONS The patient is a pleasant, 81-year-old gentleman who was admitted with unknown duration of atrial fibrillation with newly diagnosed atrial fibrillation and was referred for transesophageal echocardiogram to rule out intracardiac thrombus or mass and possibly proceed with cardioversion. Informed consent was obtained after explaining the procedure and the potential risks to the patient who agreed to proceed with the procedure. PROCEDURE 1. Transesophageal echocardiogram. 2. DC cardioversion. DESCRIPTION OF PROCEDURE Conscious sedation was performed using Versed and fentanyl. Cetacaine spray was used for pharyngeal anesthesia. Probe was advanced into the esophagus and stomach and images were obtained in multiple planes. Left atrium is dilated. Left ventricular end-diastolic dimension is normal. Left ventricular wall thickness is at the upper limits of normal. LV systolic function is normal with ejection fraction of 60%. There is no thrombus in the left atrium, left atrial appendage, or left ventricle. Right atrium is normal. Right ventricle is normal. Mitral valve is sclerotic with mild mitral regurgitation. Aortic valve is a trileaflet structure with fibrocalcific changes with no stenosis or insufficiency. Tricuspid valve shows [id number] tricuspid regurgitation. Pulmonary valve appears to be free of significant stenosis or insufficiency. There is no pericardial effusion. Agitated saline was injected which showed no evidence of bjaxp-ve-ojgl shunt. Mild spontaneous contrast is present in the left atrial cavity. Descending thoracic aorta shows moderate atherosclerosis. IMPRESSION 1. No intracardiac thrombus or mass. 2. Left atrial dilation. 3. Normal LV systolic function with ejection fraction of 60%. 4. Spontaneous contrast in left atrial cavity. 5. Mitral sclerosis with mild mitral regurgitation. 6. Aortic sclerosis. 7. Loyd-rg-ybyydwvx tricuspid regurgitation. 8. Moderate atherosclerosis of the descending thoracic aorta. After reviewing the images, we decided to proceed with cardioversion. Anterior-posterior Zoll pads were applied. 360 joules of energy was delivered in synchronized manner and biphasic mode, and patient converted from atrial fibrillation to sinus rhythm. He tolerated the procedure well with no complications. IMPRESSION Successful DC cardioversion of atrial fibrillation to sinus rhythm. PLAN Will keep him on anticoagulation and start him on antiarrhythmics to maintain sinus. MTDD
[2016-11-03] MEDS ORDERED: OXYBUTYNIN IR 5 MG PO SCH (22:00)
[2016-11-03] MEDS: LATANOPROST 0.005% LEFT EYE SCH (22:39)
[2016-11-03] MEDS: EYE LEFT EYE SCH (22:39)
[2016-11-03] MEDS: OXYBUTYNIN IR 5 MG TABLET PO SCH (22:39)
[2016-11-03] MEDS ORDERED: NS IV SCH (23:00)
[2016-11-03] MEDS ORDERED: AMIODARONE IV SCH (23:00)
[2016-11-04] VITALS (13 sets, daily range): BP systolic 105–138; BP diastolic 55–83; PULSE 73–90; RESP 16–23; TEMP 96.1–98; O2SAT 94–99
[2016-11-04 05:02] LABS: ANION GAP 12 MEQ/L (5-15); BUN/CREATININE RATIO 22 RATIO (6-26); CALCIUM 9.6 MG/DL (8.4-10.2); CHLORIDE 110 MEQ/L (98-107); CO2 - CARBON DIOXIDE 22 MEQ/L (22-30); GLOMERULAR FILTRATION RATE 72; GLUCOSE 69 MG/DL (75-110); MAGNESIUM 1.7 MG/DL (1.6-2.3); POTASSIUM 3.7 MEQ/L (3.6-5); SODIUM 144 MEQ/L (134-144)
--- NOTE | 2016-11-04 05:15 | NUR ---
Hypoglycemia Pt's BGM via lab results of 69, asymptomatic. RN provided grape juice. Upon recheck, pt's BGM 117.
--- NOTE | 2016-11-04 06:26 | NUR ---
Shift Summary Pt slept well during the night, awakes easily for cares. Denies pain or discomforts. Up once at side of bed with assist x1 to use urinal, other voids pt remained in the bed, minimal assistance provided. Pt's legs shake, however once upright he is relatively steady given his ailment. A&Ox3 and appropriate. Pleasant and cooperative. Remained in NSR with PVCs/PACs through the night, HR 70-80s. VSS. Hypoglycemic at 69 with lab draws, grape juice given. Resolved.
[2016-11-04] MEDS: OXYBUTYNIN IR 5 MG PO SCH (09:00)
[2016-11-04] MEDS: CALCIUM 600mg + VIT D 400 TABLET PO SCH (09:00)
--- NOTE | 2016-11-04 09:19 | NUR ---
CM CM IN TO VISIT WITH PT. HE IS ALERT AND ORIENTED. HE PLANS TO RETURN HOME. HE DENIES DC NEEDS. HE REPORTS THAT HE AND HIS LIVE INDEPENDENTLY. HE USES A W/C. HE REPORTS THAT THEIR HOME IS HANDICAP ACCESSIBLE. HE REPORTS THAT HE HAS ALL THE LIFT EQUIPMENT AND ASSISTIVE DEVICES NECESSARY. PT IS GIVEN CM CONTACT INFORMATION. HE IS MADE AWARE THAT DC IS POSSIBLE TODAY. LACE SCORE IS 3. Addendum: 11/04/16 at 0921 by AKBAR LEWIS RN Amended: Links added.
[2016-11-04] MEDS: APIXABAN 5 MG TABLET PO SCH ×2 (09:55→21:08)
[2016-11-04] MEDS: LOSARTAN PO SCH (09:57)
[2016-11-04] MEDS: HCTZ PO SCH (09:57)
[2016-11-04] MEDS: GLIPIZIDE 10 MG PO SCH (09:57)
[2016-11-04] MEDS: CITALOPRAM 40 MG PO SCH (09:58)
[2016-11-04] MEDS: METFORMIN 500 MG TAB - PT OWN PO SCH ×2 (09:59→17:57)
[2016-11-04] MEDS: SOTALOL 80 MG TABLET PO SCH ×2 (11:43→17:57)
--- NOTE | 2016-11-04 13:30 | NUR ---
Transferred to medical unit room 155 in wheelchair. Report to Maria Dolores ALVAREZ.
--- NOTE | 2016-11-04 14:00 | NUR ---
Transfer Patient transferred from CCU to Medical Unit room 155. Patient arrived in personal wheelchair. Able to transfer self from WC to bed by a stand pivot transfer. Patient does not tolerate much more activity than a stand pivot transfer. Alert and oriented. Patient denies chest pain or shortness of air. Bed alarm on.
--- NOTE | 2016-11-04 14:43 | PNPDOC ---
Subjective Date DATE: 11/04/16 TIME: 14:30 Beatris owen was seen this morning in his room in CCU. He remains in a SR with frequent PVCs. He denies feeling any palpitations or chest pain or pressure. Objective Vital Signs Vital signs Vital Signs 11/04/16 11/04/16 11/04/16 11/04/16 03:00 04:00 04:18 07:47 Temp 97.3 Pulse 80 87 81 73 Resp 19 20 18 B/P 113/59 123/79 131/60 Pulse Ox 95 97 98 O2 Delivery Room Air Room Air Room Air 11/04/16 11/04/16 08:00 11:43 Pulse 84 76 Telemetry Rhythm: Sinus Rhythm Telemetry Ectopy: PVC Height (Feet): 5 Height (Inches): 10.00 Weight (Kilograms): 111.400 General Alert, Orientated x 3, Cooperative, No Acute Distress ENMT (Brief) mucosa moist Neck (Brief) NOT FOUND: JVD, carotid bruits Respiratory (Brief) clear all mcdermott, equal bilaterally, NOT FOUND: rales, wheezes Cardiovascular (Brief) regular rate, regular rhythm, NOT FOUND: click, gallop, murmur, pedal edema, rub Abdomen (Brief) BS normo active x4, soft, NOT FOUND: tender Integumentary (Brief) dry, pink, warm Psychiatric (Brief) alert, attentive, normal affect, oriented Laboratory Laboratory Laboratory Tests Test 11/03/16 10:22 11/03/16 11:19 11/03/16 11:43 11/03/16 22:12 Turbidity < 20 Sodium Level 145MEQ/L Potassium Level 4.2MEQ/L Chloride Level 108MEQ/L Carbon Dioxide Level 24MEQ/L Anion Gap 13MEQ/L Blood Urea Nitrogen 25.0MG/DL Creatinine 1.0MG/DL Glomerular Filtration Rate Calc 72 BUN/Creatinine Ratio 25RATIO Glucose Level 155MG/DL Calculated Osmolality 286MOSM/KG Calcium Level 10.4MG/DL Icterus Index < 2 Chemistry Specimen Hemolysis 17 Glucometer 140mg/dL 124mg/dL Magnesium Level 1.8MG/DL Troponin I < 0.012ng/ml Thyroid Stimulating Hormone (TSH) 0.95MIU/L Test 11/04/16 04:12 11/04/16 06:23 Turbidity < 20 Sodium Level 144MEQ/L Potassium Level 3.7MEQ/L Chloride Level 110MEQ/L Carbon Dioxide Level 22MEQ/L Anion Gap 12MEQ/L Blood Urea Nitrogen 22.0MG/DL Creatinine 1.0MG/DL Glomerular Filtration Rate Calc 72 BUN/Creatinine Ratio 22RATIO Glucose Level 69MG/DL Calculated Osmolality 278MOSM/KG Calcium Level 9.6MG/DL Magnesium Level 1.7MG/DL Icterus Index < 2 Chemistry Specimen Hemolysis < 15 Glucometer 117mg/dL Laboratory Tests 11/04/16 04:12 EKG SR with frequent PVCs, QT/QTc 421/449 Medications Current Medications Cefazolin Sodium (Kefzol) 2 g PREOP ONCE IV ; Start 11/03/16 at 12:15; Stop at 12:16; Status DC Lidocaine HCl 1 mg 1 mg O ONCE INJ ; Start 11/03/16 at 07:00; Stop 11/03/16 at 07:01; Status DC Lactated Ringer's 1,000 ml @ 50 mls/hr Q20H IV ; Start 11/03/16 at 07:00; Stop 11/03/16 at 14:52; Status DC Sodium Chloride (Normal Saline IV) 1,000 ml @ 75 mls/hr [id number] ONCE IV Last administered on 11/03/16 12:08; Start 11/03/16 at 11:45; Stop 11/04/16 at 01:04 ; Status DC Enoxaparin Sodium (Lovenox) 110 mg BID SQ Last administered on 11/03/16 12:27 ; Start 11/03/16 at 11:45; Stop 11/03/16 at 16:21; Status DC Sodium Chloride 10 ml 10 ml STK-MED ONCE .ROUTE ; Start 11/03/16 at 16:00; Stop 11/03/16 at 16:01; Status DC Amiodarone HCl/ Sodium Chloride (Amiodarone/NS) 103 ml @ 600 mls/hr NOW ONCE IV Last administered on 11/03/16 16:53; Start 11/03/16 at 16:15; Stop at 16:25; Status DC Calcium/Vitamin D (Caltrate + D) 1 tab DAILY PO ; Start 11/04/16 at 09:00 Citalopram Hydrobromide (Celexa) 40 mg DAILY PO Last administered on 11/04/16 09:58; Start 11/04/16 at 09:00 Glipizide (Glucotrol Xl) 10 mg 0730 PO Last administered on 11/04/16 09:57; Start 11/04/16 at 09:00 Acetaminophen/ Hydrocodone Bitart ([place] 5/325) prn Q4H PRN PO PAIN; Start at 16:15 Latanoprost (Xalatan) 1 drop HS LEFT EYE Last administered on 11/03/16 22:39; Start 11/03/16 at 22:00 HCTZ/Losartan Potassium (Hyzaar 100/25) 1 tab DAILY PO Last administered on 09:57; Start 11/04/16 at 09:00 Metformin HCl (Glucophage) 1,000 mg BIDWM PO Last administered on 11/04/16 09: 59; Start 11/03/16 at 17:30 Sennosides (Sennagen) 8.6 mg DAILY PRN PO CONSTIPATION; Start 11/03/16 at 16:15 Acetaminophen (Tylenol Regular Strength) 325-650 mg po every 5 hrs ... Q5H PRN PO PAIN; Start 11/03/16 at 16:15 Promethazine HCl (Phenergan) 12.5 mg to 25 mg IV q6h ... Q6H PRN IV NAUSEA; Start 11/03/16 at 16:15 Nitroglycerin (Nitrostat) 0.4 mg Q5MIN PRN SL CHEST PAIN; Start 11/03/16 at 16: 15 Magnesium Hydroxide (Mom) 30 ml DAILY PRN PO CONSTIPATION; Start 11/03/16 at 16 :15 Bisacodyl (Dulcolax) 5-10 mg PO PRN constipation DAILY PRN PO CONSTIPATION; Start 11/03/16 at 16:15 Al Hydroxide/Mg Hydroxide (Maalox) 30 ml Q3-4H PRN PO INDIGESTION; Start at 16:15 Lorazepam (Ativan) 0.5-1 mg IV Q4H PRN IV ; Start 11/03/16 at 16:15 Metoclopramide HCl (REGLAN Inj) 5-10 mg IV every 6 hrs PRN naus... Q6H PRN IV NAUSEA &/OR VOMITING; Start 11/03/16 at 16:15 Apixaban 5 mg 5 mg BID PO Last administered on 11/04/16 09:55; Start 11/04/16 at 09:00 Amiodarone HCl/ Sodium Chloride (Cordarone/NS) 500 ml @ 16.66 mls/ hr Q24H IV ; Start 11/03/16 at 23:00; Stop 11/04/16 at 11:02; Status DC Fentanyl (Fentanyl) 100 mcg STK-MED ONCE IV ; Start 11/03/16 at 16:58; Stop at 16:59; Status DC Midazolam HCl (Versed) 2 mg STK-MED ONCE IV ; Start 11/03/16 at 16:58; Stop at 16:59; Status DC Oxybutynin Chloride (Ditropan) 5 mg HS PO Last administered on 11/03/16 22:39 ; Start 11/03/16 at 22:00 Diphenhydramine HCl (Benadryl) 50 mg DAILY PO Last administered on 11/04/16 09 :59; Start 11/04/16 at 09:00 Sotalol HCl (Betapace) 40 mg ACBID PO Last administered on 11/04/16 11:43; Start 11/04/16 at 11:00 Radiology [place], [place] [address] Name: RAYMUNDODIANE Alvarado Unit #: [id number] Draft Page 2 of 2 TRANSESOPHAGEAL ECHOCARDIOGRAM Report #: [id number] Dictated By: CHITO RITCHIE MD 11/03/161607 Transcribed By: SHAHLA CARUSO 11/03/162109 cc: MARTINEZ DIEZ MD~ [address] [address] [phone] Dictated By: CHITO RITCHIE MD 11/03/161607 Transcribed By: SHAHLA CARUSO 11/03/162109 cc: MARTINEZ DIEZ MD~ DATE OF PROCEDURE 11/03/2016 REFERRING PHYSICIAN Martinez Diez MD INDICATIONS The patient is a pleasant, 81-year-old gentleman who was admitted with unknown duration of atrial fibrillation with newly diagnosed atrial fibrillation and was referred for transesophageal echocardiogram to rule out intracardiac thrombus or mass and possibly proceed with cardioversion. Informed consent was obtained after explaining the procedure and the potential risks to the patient who agreed to proceed with the procedure. PROCEDURE 1. Transesophageal echocardiogram. 2. DC cardioversion. DESCRIPTION OF PROCEDURE Conscious sedation was performed using Versed and fentanyl. Cetacaine spray was used for pharyngeal anesthesia. Probe was advanced into the esophagus and stomach and images were obtained in multiple planes. Left atrium is dilated. Left ventricular end-diastolic dimension is normal. Left ventricular wall thickness is at the upper limits of normal. LV systolic function is normal with ejection fraction of 60%. There is no thrombus in the left atrium, left atrial appendage, or left ventricle. Right atrium is normal. Right ventricle is normal. Mitral valve is sclerotic with mild mitral regurgitation. Aortic valve is a trileaflet structure with fibrocalcific changes with no stenosis or insufficiency. Tricuspid valve shows mham-sy-njfzyogh tricuspid regurgitation. Pulmonary valve appears to be free of significant stenosis or insufficiency. There is no pericardial effusion. Agitated saline was injected which showed no evidence of hwkvp-qt-glcn shunt. Mild spontaneous contrast is present in the left atrial cavity. Descending thoracic aorta shows moderate atherosclerosis. IMPRESSION 1. No intracardiac thrombus or mass. 2. Left atrial dilation. 3. Normal LV systolic function with ejection fraction of 60%. 4. Spontaneous contrast in left atrial cavity. 5. Mitral sclerosis with mild mitral regurgitation. 6. Aortic sclerosis. 7. Qylz-hg-qiempmmw tricuspid regurgitation. 8. Moderate atherosclerosis of the descending thoracic aorta. After reviewing the images, we decided to proceed with cardioversion. Anterior- posterior Zoll pads were applied. 360 joules of energy was delivered in synchronized manner and biphasic mode, and patient converted from atrial fibrillation to sinus rhythm. He tolerated the procedure well with no complications. IMPRESSION Successful DC cardioversion of atrial fibrillation to sinus rhythm. PLAN Will keep him on anticoagulation and start him on antiarrhythmics to maintain sinus. Assessment & Plan Problems: (1) New onset atrial fibrillation Status: Acute Assessment & Plan: Successful DCCV yesterday. Was on Amiodarone drip overnight. Has frequent PVCs. Change antiarrhythmic to Sotalol 40mg PO BID. Started on Eliquis 5mg PO BID for stroke prevention. (2) Essential (primary) hypertension Status: Chronic Assessment & Plan: Continue Losartan/ HCTZ (3) Mixed hyperlipidemia Status: Chronic (4) Diabetes mellitus Status: Chronic Qualifiers: Diabetes mellitus type: type 2 Diabetes mellitus complication status: without complication Diabetes mellitus assisted insulin use: without assisted use Qualified Codes: E11.9 - Type 2 diabetes mellitus without complications Assessment & Plan: Continue Metformin, and Glipizide. Monitor BGMs Plan/Intensity of Service 11/03/16 Keep NPO for COURTNEY, possible DCCV later today. Started on Lovenox for anticoagulation, will change to Eliquis 5mg BID beginning in the am for stroke prevention. Following successful cardioversion start Amiodarone bolus and drip, continue to monitor telemetry, repeat EKG in the am. 11/04/16 Successful DCCV yesterday. Was on Amiodarone drip overnight. Has frequent PVCs. Change antiarrhythmic to Sotalol 40mg PO BID. Continue to monitor telemetry and repeat EKG in the morning. Started on Eliquis 5mg PO BID for stroke prevention. ATIYA GALAVIZ APRN November 04, 2016 14:34
[2016-11-04 15:21] LABS: HCT - HEMATOCRIT 36.6 % (41-53); HGB - HEMOGLOBIN 12.8 GM/DL (13.5-17.5); MEAN CORPUSCULAR HGB 31.9 UUG (26-34); MEAN CORPUSCULAR VOLUME 91.3 UM3 (80-100); MEAN PLATELET VOLUME 10.6 UM3 (9.4-12.4); RED BLOOD COUNT 4.01 M/MM3 (4.50-5.90); WBC - WHITE BLOOD COUNT 9.2 T/MM3 (4.5-11.0)
--- NOTE | 2016-11-04 19:47 | NUR ---
Status Patient resting quietly in bed with family present. Up to wheelchair for supper this evening. Continues to tolerate activity well. Denies pain. Minimal needs today. Call light within reach.
[2016-11-04] MEDS: LATANOPROST 0.005% LEFT EYE SCH (21:08)
[2016-11-04] MEDS: EYE LEFT EYE SCH (21:08)
[2016-11-04] MEDS: OXYBUTYNIN IR 5 MG TABLET PO SCH (21:09)
[2016-11-05 04:41] VITALS: BP 129/67; PULSE 78; RESP 18; TEMP 97.5; O2SAT 98
[2016-11-05 05:15] LABS: HCT - HEMATOCRIT 39.1 % (41-53); HGB - HEMOGLOBIN 13.5 GM/DL (13.5-17.5); MEAN CORPUSCULAR HGB CONC(MCHC 34.5 GM/DL (31-37); MEAN CORPUSCULAR VOLUME 92.7 UM3 (80-100); MEAN PLATELET VOLUME 10.6 UM3 (9.4-12.4); RED BLOOD COUNT 4.22 M/MM3 (4.50-5.90); WBC - WHITE BLOOD COUNT 10.5 T/MM3 (4.5-11.0)
[2016-11-05 05:28] LABS: ANION GAP 13 MEQ/L (5-15); BUN/CREATININE RATIO 21 RATIO (6-26); CALCIUM 9.9 MG/DL (8.4-10.2); CHLORIDE 108 MEQ/L (98-107); CO2 - CARBON DIOXIDE 24 MEQ/L (22-30); GLOMERULAR FILTRATION RATE 72; GLUCOSE 104 MG/DL (75-110); MAGNESIUM 1.7 MG/DL (1.6-2.3); POTASSIUM 3.9 MEQ/L (3.6-5); SODIUM 145 MEQ/L (134-144)
--- NOTE | 2016-11-05 05:47 | NUR ---
Status in room during most of evening. Pt up with one to stand/pivot to wheelchair. Unsteady on feet. In sinus arrhythmia with occasional PVC's during shift. Denied chest pain or palpitations. HR ranged from 60's to 80's with occasional 90's. IV in right hand occluded. DC'ed IV. Tip intact. New IV site placed in L Forearm. Bed alarm on. Uses call light appropriately. Will continue to monitor.
[2016-11-05] MEDS: SOTALOL 80 MG TABLET PO SCH (06:05)
[2016-11-05 07:20] VITALS: BP 115/65; PULSE 60; RESP 18; TEMP 95.6; O2SAT 97
[2016-11-05] MEDS: GLIPIZIDE 10 MG PO SCH (08:21)
[2016-11-05] MEDS: METFORMIN 500 MG TAB - PT OWN PO SCH (08:22)
[2016-11-05] MEDS: APIXABAN 5 MG TABLET PO SCH (08:22)
[2016-11-05] MEDS: CALCIUM 600mg + VIT D 400 TABLET PO SCH (08:22)
[2016-11-05] MEDS: CITALOPRAM 40 MG PO SCH (08:23)
[2016-11-05] MEDS: OXYBUTYNIN IR 5 MG PO SCH (08:23)
[2016-11-05] MEDS: LOSARTAN PO SCH (08:24)
[2016-11-05] MEDS: HCTZ PO SCH (08:24)
[2016-11-05 12:00] VITALS: BP 129/69; PULSE 70; RESP 18; TEMP 96.6; O2SAT 98
[2016-11-05] MEDS ORDERED: SOTA80TA20 PO ×2 (14:19→14:42)
[2016-11-05] MEDS ORDERED: APIX5TAB PO ×2 (14:19→14:42)
--- NOTE | 2016-11-05 14:35 | DSPDOC ---
General Date Date DATE: 11/05/16 TIME: 14:29 Attending Physician Vj Carlson MD Admitting Physician Vj Carlson MD Consulting Physician Vj Carlson MD Admitting Diagnosis Atrial Fibrillation Discharge Diagnosis Atrial Fibrillation Laboratory Laboratory Tests Test 11/04/16 04:12 11/04/16 06:23 11/04/16 14:58 11/04/16 19:49 Turbidity < 20 (0-20) Sodium Level 144MEQ/L (134-144) Potassium Level 3.7MEQ/L (3.6-5) Chloride Level 110MEQ/L (98-107) Carbon Dioxide Level 22MEQ/L (22-30) Anion Gap 12MEQ/L (5-15) Blood Urea Nitrogen 22.0MG/DL (9-20) Creatinine 1.0MG/DL (0.8-1.5) Glomerular Filtration Rate Calc 72 BUN/Creatinine Ratio 22RATIO (6-26) Glucose Level 69MG/DL (75-110) Calculated Osmolality 278MOSM/KG (261-280) Calcium Level 9.6MG/DL (8.4-10.2) Magnesium Level 1.7MG/DL (1.6-2.3) Icterus Index < 2 (0-7) Chemistry Specimen Hemolysis < 15 (0-25) Glucometer 117mg/dL (75-110) 175mg/dL (75-110) White Blood Count 9.2T/MM3 (4.5-11.0) Red Blood Count 4.01M/MM3 (4.50-5.90) Hemoglobin 12.8GM/DL (13.5-17.5) Hematocrit 36.6% (41-53) Mean Corpuscular Volume 91.3UM3 (80-100) Mean Corpuscular Hemoglobin 31.9UUG (26-34) Mean Corpuscular Hemoglobin Concent 35.0GM/DL (31-37) RDW Standard Deviation 45.0FL (36.9-50.2) Platelet Count 169T/MM3 (130-400) Mean Platelet Volume 10.6UM3 (9.4-12.4) Test 11/05/16 04:32 11/05/16 06:01 White Blood Count 10.5T/MM3 (4.5-11.0) Red Blood Count 4.22M/MM3 (4.50-5.90) Hemoglobin 13.5GM/DL (13.5-17.5) Hematocrit 39.1% (41-53) Mean Corpuscular Volume 92.7UM3 (80-100) Mean Corpuscular Hemoglobin 32.0UUG (26-34) Mean Corpuscular Hemoglobin Concent 34.5GM/DL (31-37) RDW Standard Deviation 45.6FL (36.9-50.2) Platelet Count 170T/MM3 (130-400) Mean Platelet Volume 10.6UM3 (9.4-12.4) Turbidity < 20 (0-20) Sodium Level 145MEQ/L (134-144) Potassium Level 3.9MEQ/L (3.6-5) Chloride Level 108MEQ/L (98-107) Carbon Dioxide Level 24MEQ/L (22-30) Anion Gap 13MEQ/L (5-15) Blood Urea Nitrogen 21.0MG/DL (9-20) Creatinine 1.0MG/DL (0.8-1.5) Glomerular Filtration Rate Calc 72 BUN/Creatinine Ratio 21RATIO (6-26) Glucose Level 104MG/DL (75-110) Calculated Osmolality 282MOSM/KG (261-280) Calcium Level 9.9MG/DL (8.4-10.2) Magnesium Level 1.7MG/DL (1.6-2.3) Icterus Index < 2 (0-7) Chemistry Specimen Hemolysis < 15 (0-25) Glucometer 110mg/dL (75-110) History of Present Illness Toney is a 81 year old male patient of Dr. 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 He does not have a known cardiac history, has never seen a gimp tacker. Dr. Silverman is his PCP. I examined him in the pre-op area where he denies chest pain, SOA, arm and neck pain. He has experienced a feeling"like my lungs collapse" when he takes a deep breath, off and on since last Monday. His reports that the patient has been more fatigued and sleeping more than previously. He is to be transferred to CCU for monitoring and COURTNEY, possible DCCV later today. I Objective Vital Signs Vital signs Vital Signs 11/05/16 11/05/16 11/05/16 11/05/16 04:41 06:05 07:20 12:00 Temp 97.5 95.6 96.6 Pulse 78 75 60 70 Resp 18 18 18 B/P 129/67 115/65 129/69 Pulse Ox 98 97 98 O2 Delivery Room Air Room Air Room Air Telemetry Rhythm: Sinus Rhythm Telemetry Ectopy: PVC Height (Feet): 5 Height (Inches): 10.00 Weight (Kilograms): 108.500 General Alert, Orientated x 3 Neck (Brief) NOT FOUND: JVD Respiratory (Brief) clear all mcdermott, equal bilaterally Cardiovascular (Brief) regular rate, regular rhythm, NOT FOUND: click, gallop, murmur, pedal edema, rub Abdomen (Brief) soft Extremities (Brief) Extremity : Extremity Finding: NOT FOUND: edema Integumentary (Brief) dry, pink, warm Psychiatric (Brief) alert, attentive, normal affect, oriented Laboratory Laboratory Laboratory Tests 11/05/16 04:32 Laboratory Tests 11/04/16 14:58 11/05/16 04:32 Medications Current Medications Cefazolin Sodium (Kefzol) 2 g PREOP ONCE IV ; Start 11/03/16 at 12:15; Stop at 12:16; Status DC Lidocaine HCl 1 mg 1 mg O ONCE INJ ; Start 11/03/16 at 07:00; Stop 11/03/16 at 07:01; Status DC Lactated Ringer's 1,000 ml @ 50 mls/hr Q20H IV ; Start 11/03/16 at 07:00; Stop 11/03/16 at 14:52; Status DC Sodium Chloride (Normal Saline IV) 1,000 ml @ 75 mls/hr [id number] ONCE IV Last administered on 11/03/16 12:08; Start 11/03/16 at 11:45; Stop 11/04/16 at 01:04 ; Status DC Enoxaparin Sodium (Lovenox) 110 mg BID SQ Last administered on 11/03/16 12:27 ; Start 11/03/16 at 11:45; Stop 11/03/16 at 16:21; Status DC Sodium Chloride 10 ml 10 ml STK-MED ONCE .ROUTE ; Start 11/03/16 at 16:00; Stop 11/03/16 at 16:01; Status DC Amiodarone HCl/ Sodium Chloride (Amiodarone/NS) 103 ml @ 600 mls/hr NOW ONCE IV Last administered on 11/03/16 16:53; Start 11/03/16 at 16:15; Stop at 16:25; Status DC Calcium/Vitamin D (Caltrate + D) 1 tab DAILY PO Last administered on 11/05/16 08:22; Start 11/04/16 at 09:00 Citalopram Hydrobromide (Celexa) 40 mg DAILY PO Last administered on 11/05/16 08:23; Start 11/04/16 at 09:00 Glipizide (Glucotrol Xl) 10 mg 0730 PO Last administered on 11/05/16 08:21; Start 11/04/16 at 09:00 Acetaminophen/ Hydrocodone Bitart ([place] 5/325) prn Q4H PRN PO PAIN; Start at 16:15 Latanoprost (Xalatan) 1 drop HS LEFT EYE Last administered on 11/04/16 21:08; Start 11/03/16 at 22:00 HCTZ/Losartan Potassium (Hyzaar 100/25) 1 tab DAILY PO Last administered on 08:24; Start 11/04/16 at 09:00 Metformin HCl (Glucophage) 1,000 mg BIDWM PO Last administered on 11/05/16 08: 22; Start 11/03/16 at 17:30 Sennosides (Sennagen) 8.6 mg DAILY PRN PO CONSTIPATION; Start 11/03/16 at 16:15 Acetaminophen (Tylenol Regular Strength) 325-650 mg po every 5 hrs ... Q5H PRN PO PAIN; Start 11/03/16 at 16:15 Promethazine HCl (Phenergan) 12.5 mg to 25 mg IV q6h ... Q6H PRN IV NAUSEA; Start 11/03/16 at 16:15 Nitroglycerin (Nitrostat) 0.4 mg Q5MIN PRN SL CHEST PAIN; Start 11/03/16 at 16: 15 Magnesium Hydroxide (Mom) 30 ml DAILY PRN PO CONSTIPATION; Start 11/03/16 at 16 :15 Bisacodyl (Dulcolax) 5-10 mg PO PRN constipation DAILY PRN PO CONSTIPATION; Start 11/03/16 at 16:15 Al Hydroxide/Mg Hydroxide (Maalox) 30 ml Q3-4H PRN PO INDIGESTION; Start at 16:15 Lorazepam (Ativan) 0.5-1 mg IV Q4H PRN IV ; Start 11/03/16 at 16:15 Metoclopramide HCl (REGLAN Inj) 5-10 mg IV every 6 hrs PRN naus... Q6H PRN IV NAUSEA &/OR VOMITING; Start 11/03/16 at 16:15 Apixaban 5 mg 5 mg BID PO Last administered on 11/05/16 08:22; Start 11/04/16 at 09:00 Amiodarone HCl/ Sodium Chloride (Cordarone/NS) 500 ml @ 16.66 mls/ hr Q24H IV ; Start 11/03/16 at 23:00; Stop 11/04/16 at 11:02; Status DC Fentanyl (Fentanyl) 100 mcg STK-MED ONCE IV ; Start 11/03/16 at 16:58; Stop at 16:59; Status DC Midazolam HCl (Versed) 2 mg STK-MED ONCE IV ; Start 11/03/16 at 16:58; Stop at 16:59; Status DC Oxybutynin Chloride (Ditropan) 5 mg HS PO Last administered on 11/04/16 21:09 ; Start 11/03/16 at 22:00 Diphenhydramine HCl (Benadryl) 50 mg DAILY PO Last administered on 11/05/16 08 :22; Start 11/04/16 at 09:00 Sotalol HCl (Betapace) 40 mg ACBID PO Last administered on 11/05/16 06:05; Start 11/04/16 at 11:00 Hospital Course New onset afib RVR. Cardioversion complete. SR PVCs now. Home on Sotalol and Eliquis. f/u on 11-16-16 Problems: (1) New onset atrial fibrillation Status: Acute Assessment & Plan: Successful DCCV yesterday. Was on Amiodarone drip overnight. Has frequent PVCs. Change antiarrhythmic to Sotalol 40mg PO BID. Started on Eliquis 5mg PO BID for stroke prevention. (2) Essential (primary) hypertension Status: Chronic Assessment & Plan: Continue Losartan/ HCTZ (3) Mixed hyperlipidemia Status: Chronic (4) Diabetes mellitus Status: Chronic Assessment & Plan: Continue Metformin, and Glipizide. Monitor BGMs Code Status Full Code Home Meds Reported Medications Calcium Carbonate/Vitamin D3 (Caltrate 600 + D Tablet) 1 Each Tablet, 1 TAB PO DAILY 11/02/16 Sennosides (Senna) 8.6 Mg Tablet, 8.6 MG PO DAILY Y for CONSTIPATION, TAB 11/02/16 Latanoprost (Latanoprost) 2.5 Ml Drops, 1 DROP LEFT EYE HS, BOTTLE 11/02/16 Citalopram Hydrobromide (Citalopram HBr) 40 Mg Tablet, 1 TAB PO DAILY, TAB 11/02/16 Multivits,Ca,Min/Iron/Fa/Lycop (Centrum Ultra Men's Tablet) 1 Each Tablet, 1 EACH PO HS 07/21/12 Oxybutynin Chloride (Oxybutynin Chloride) 5 Mg Tablet, 10 MG PO HS 07/21/12 Oxybutynin Chloride (Oxybutynin Chloride) 5 Mg Tablet, 5 MG PO AM 07/21/12 Losartan/Hydrochlorothiazide (Losartan-Hctz 100-25 Mg Tab) 1 Each Tablet, 1 EACH PO DAILY 07/21/12 Metformin Hcl (Metformin Hcl) 500 Mg Tablet, 1000 MG PO BID 10/15/08 Glipizide (Glipizide) 10 Mg Tablet, 10 MG PO DAILY 10/15/08 Discontinued Reported Medications Hydrocodone/Acetaminophen ([place] 5-325 Tablet) 5-325 Tablet, 1-2 TAB PO Q4HPRN, TAB 11/02/16 Discharge Disposition home with PRINCESSMaggieADRI STILES TRANSITIONAL CARE MANAGER November 05, 2016 14:34
--- NOTE | 2016-11-05 15:15 | NUR ---
PT DISCHARGED TO HOME. GIVEN DISCHARGE PACKET. DISCONTINUED IV. SENT WITH [facility] FOR SOTOLOL. DENIES PAIN. UP WITH STANDBY SUPERVISION. PT AND VERBALIZED UNDERSTANDING OF DISCHARGE INSTRUCTIONS. DISCHARGE PACKET WITH PT AND BELONGINGS WITH PT. ESCORTED OUT WITH RN. DENIES NEEDS. TO DRIVE HOME
== END 2016-11-05 15:15 | disposition home or self-care (01) | DRG 310 ==
LOC: SCU 09:44 → CCU 11:00 → MED 11-04 13:20 → OBSVTOIN 11-04 15:30
PROVIDERS: ADMIT Internal Medicine Cardiovascular Disease; ATTEND Internal Medicine Cardiovascular Disease
PROC: 5A2204Z Restoration of Cardiac Rhythm, Single (ICD-10-PCS; principal; 2016-11-03)
PROC: B246ZZ4 Ultrasonography of Right and Left Heart, Transesophageal (ICD-10-PCS; 2016-11-03)
DX: I48.91 Unspecified atrial fibrillation (principal); E11.9 Type 2 diabetes mellitus without complications; I10 Essential (primary) hypertension; E78.00 Pure hypercholesterolemia, unspecified; D03.9 Melanoma in situ, unspecified; M19.91 Primary osteoarthritis, unspecified site; F32.9 Major depressive disorder, single episode, unspecified; Z53.09 Procedure and treatment not carried out because of other contraindication; Z87.891 Personal history of nicotine dependence
CPT/HCPCS: 36415; 80048; 82948; 83735; 84443; 84484; 85027; 93005; 99218